=== PATIENT | female | born 1965 | race Caucasian/White ===

== ENCOUNTER 2024-03-19 10:13 | Outpatient (OUT) | payer OTHER, SELFPAY ==
[2024-03-19 11:04] LABS: Anion Gap 8.3; BUN Creatinine Ratio 14.6; Carbon Dioxide 33.2 mmol/L (21.0-32.0); Chloride 107 mmol/L (98-107); Estimated GFR (African America >60 (>=60 mL/min/1.73m^2); Estimated GFR (Non-African Ame >60 (>=60 mL/min/1.73m^2); Glucose 90 mg/dL (74-106); Potassium 4.5 mmol/L (3.5-5.1); Sodium 144 mmol/L (136-145)
== END 2024-03-19 10:14 | disposition home or self-care (01) ==
LOC: LAB 10:17
PROVIDERS: PCP Internal Medicine; Visit Provider Internal Medicine
DX: R53.82 Chronic fatigue, unspecified (principal); G35 Multiple sclerosis
CPT/HCPCS: 36415; 80048

== ENCOUNTER 2024-09-03 18:56 | Outpatient (REF) | payer MEDICARE, SELFPAY ==
--- OUTSIDE RECORDS SUMMARY | 2024-09-03 13:00 | XMS_ITS | Encounter Summary ---
Author Organization [facility] Address [address] [place] [address] Care Team Providers Care Flat Lock Operator Name Role Phone Unavailable Primary Care Provider Unavailabl e Reason for Visit * Reason Comments Well Women Visit Encounter Details Date Type Department Care Team (Late st Contact Info) Description 09/03/2024 1:00 PM EDT Office Visit [facility] [address] [place] [address] Kleber Wood, DO [address] [facility] [address] [place], [facility]11 Well woman exam with routine gynecological exam; Encounter for screening mammogram for malignant neoplasm of breast; Postmenopausal state; Osteoporosis, post-menopausal Social History Tobacco Use Types Packs/Day Years Used Date Smoking Tobacco: Never Smokeless Tobacco: Never Alcohol Use Standard Drinks/Week Comments Never 0 (1 standard drink = 0.6 oz pur e alcohol) Comments Unknown Sex and Gender Information Value Date Recorded Sex Assigned at Female 01/24/2023 4:15 PM EST Legal Sex Female 11:47 PM EDT Gender Identity Female 01/24/2023 4:15 PM EST Sexual Orientation Straight 01/24/2023 4: 15 PM EST documented as of this encounter Last Filed Vital Signs Vital Sign Reading Time Taken Comments Blood Pressure 108/62 09/03/2024 1:14 PM EDT Pulse - - Temperature - - Respiratory Rate - - Oxygen Saturation - - Inhaled Oxygen Concentration - - Weight 51 kg (112 lb 8 oz) 09/03/2024 1:14 PM ED T Height - - Body Mass Index 18.16 01/24/2022 12:00 PM EST documented in this encounter Progress Notes * Umm Posada LPN - 09/03/2024 1:00 PM EDT Reason for Appointment: Patient ID: Sharmin Owens is a 59 y.o. female who presents for Well Women Visit Patient presents today for Annual Exam. MEDICATIONS Current Outpatient Medications Medication Instructions baclofen (Lioresal) 10 MG tablet Take by mouth calcitriol (Rocaltrol) 0.5 MCG capsule Take by mouth co-enzyme Q-10 30 MG capsule No dose, route, or frequency recorded. Multiple Vitamin (multivitamin) tablet No dose, route, or frequency recorded. pregabalin (Lyrica) 25 MG capsule Take by mouth solifenacin (VESIcare) 5 MG tablet Take by mouth Swallow tablet whole; do not crush, chew, or split. traZODone (Desyrel) 50 MG tablet Take by mouth Turmeric (QC TUMERIC COMPLEX PO) Take by mouth venlafaxine (Effexor) 25 MG tablet No dose, route, or frequency recorded. ALLERGIES Allergies Allergen Reactions Penicillins Rash PROBLEMS Active Ambulatory Problems Diagnosis Date Noted No Active Ambulatory Problems Resolved Ambulatory Problems Diagnosis Date Noted No Resolved Ambulatory Problems Past Medical History: Diagnosis Date Abnormal mammogram Breast cyst, right Menopause Osteopenia Osteoporosis HISTORY PAST MEDICAL HISTORY SOCIAL HISTORY Past Medical History: Diagnosis Date Abnormal mammogram Breast cyst, right Menopause Osteopenia Osteoporosis Social History Tobacco Use Smoking status: Never Smokeless tobacco: Never Substance Use Topics Alcohol use: Never Drug use: Never FAMILY HISTORY Family History Problem Relation Name Age of Onset Hypertension Mother Cancer Maternal Grandmother SURGICAL HISTORY Past Surgical History: Procedure Laterality Date DILATION AND CURETTAGE OF UTERUS REVIEW OF SYSTEMS Review of Systems: Review of Systems Constitutional: Negative. HENT: Negative. Eyes: Negative. Respiratory: Negative. Cardiovascular: Negative. Gastrointestinal: Negative. Genitourinary: Negative. Musculoskeletal: Negative. Skin: Negative. Neurological: Negative. All other systems reviewed and are negative. Hematological: Negative. Endocrine: Negative. Allergic/Immunologic: Negative. OBJECTIVE Objective: Physical Exam Constitutional: Appearance: Normal appearance. She is well-developed. Genitourinary: Vulva normal. Cardiovascular: Rate and Rhythm: Normal rate and regular rhythm. Pulmonary: Effort: Pulmonary effort is normal. Breath sounds: Normal breath sounds. Abdominal: General: Bowel sounds are normal. There is no distension. Palpations: Abdomen is soft. Tenderness: There is no abdominal tenderness. There is no guarding or rebound. Musculoskeletal: General: No swelling. Normal range of motion. Right lower leg: No edema. Left lower leg: No edema. Neurological: Mental Status: She is alert and oriented to person, place, and time. Skin: General: Skin is warm and dry. Psychiatric: Mood and Affect: Mood normal. Behavior: Behavior normal. Vitals and nursing note reviewed. Exam conducted with a sales and marketing assistant present. Vitals: Estimated body mass index is 18.16 kg/m?? as calculated from the following: Height as of 01/24/22: 5' 6 . Weight as of this encounter: 112 lb 8 oz. BP: 108/62 No LMP recorded. ASSESSMENT & PLAN ICD-10-CM 1. Well woman exam with routine gynecological exam Z01.419 2. Encounter for screening mammogram for malignant neoplasm of breast Z12.31 3. Postmenopausal state Z78.0 No orders of the defined types were placed in this encounter. Annual Wellness Exam (Age 50+): Patient presents today for routine annual exam. Patient states she has no current complaints. Patients vitals were reviewed and within normal limits. Growth and development is noted to be appropriate for age. No mental health concerns was expressed. Pap Smear: Speculum was inserted into the vagina and pap was obtained without difficulty. HPV testing was performed per age guideline. Patient was advised that pap results could take anywhere from 7 to 10 days to receive and our office will reach out to the patient with those once we have them. Patient can also view results via [employer]. I reinforced importance of condom use for STI prevention. Patient declined cultures to be performed with today's visit. Breast Exam: Upon examination, clinical breast exam was noted to be normal and screening mammogram was ordered and given to patient to have obtained. Patient was counseled on breast self-awareness, including the importance of knowing what is normal for her own breasts and promptly reporting any changes such as new lumps, skin dimpling, nipple discharge, or pain. Screening mammogram was recommended annually. Discussed signs and symptoms of breast cancer and when to seek medical attention. Answered all patient questions. DEXA Counseling: DEXA scan ordered and given to the patient to have performed for osteoporosis screening per guidelines. Patient counseled on bone health, including the importance of calcium and vitamin D intake, weight-bearing exercise, fall prevention, and avoiding tobacco and excessive alcohol. Discussed purposeof DEXA in assessing fracture risk and monitoring bone density. Patient advised results will be reviewed upon completion and next steps discussed as needed. Pt was counseled on fosamax and prolia- ptwill research Prolia and pt will call office. Follow Up: Patient is to return to our office in one year for annual exam unless needed otherwise. Documented by Umm Posada LPN on behalf of: Kleber Wood DO documented in this encounter Plan of Treatment Upcoming Encounters Date Type Department Care Team (Late st Contact Info) Description 09/09/2025 3:00 PM EDT Office Visit [facility] [address] [place] [id number] Kleber Wood DO [address] [facility] [place] [address] Scheduled Orders Name Type Priority Associated Diagnoses Orde r Schedule Bilateral screening mammogram Imaging Routine Encounter for screening mammogram for malignant neoplasm of breast Expected: 09/03/2024, Expires: 11/03/2025 DEXA bone density Imaging Routine Postmenopausal state Osteoporosis, post-menopausal Expected: 09/03/2024 (Approximate), Expires: 09/03/2025 THIN PREP TIS PAP AND HR HPV DNA Pathology and Cytology Routine Well woman exam with routine gynecological exam Ordered: 09/03/2024 documented as of this encounter Procedures Procedure Name Priority Date/Time Associated Diagnosis Comments PAP SMEAR Routine 01/24/2022 12:00 AM EST documented in this encounter Results * Pap Smear (01/24/2022 12:00 AM EST) Swab Cervical swab / Unknown us Kleber Wood DO LAB CYTOLOGY ORDERABLES Final Re sult EXTERNAL LAB documented in this encounter Visit Diagnoses Diagnosis Well woman exam with routine gynecological exam Routine gynecological examination Encounter for screening mammogram for malignant neoplasm of breast Postmenopausal state Asymptomatic postmenopausal status (age-related) (natural) Osteoporosis, post-menopausal Senile osteoporosis documented in this encounter
--- OUTSIDE RECORDS SUMMARY | 2024-09-03 19:09 | XMS_ITS | Encounter Summary ---
Author Organization [facility] Address [address] [place] [address] Care Team Providers Care Bariatric Physician Name Role Phone Seamus Parmar(Hist) Primary Care Provider Girish lin Pcp, Shanta TOSCANO Primary Care Provider Unavailrafaela e Source Comments In the event this information is protected by the Federal Confidentiality of Alcohol and Drug AbusePatient Records regulations: The Federal rules restrict any use of the information to criminally investigate or prosecute any alcohol or drug abuse patient.[facility] Reason for Visit * Reason Comments Results Encounter Details Date Type Department Care Team (Late st Contact Info) Description 01/06/2005 Abstract Neurology [address] [id number] [place] [address] [place], [place] [id number] Results Social History Tobacco Use Types Packs/Day Years Used Date Smoking Tobacco: Never Assessed Comments No Sex and Gender Information Value Date Recorded Sex Assigned at Not on file Legal Sex Female 7:31 AM EST Gender Identity Not on file Sexual Orientation Not on file documented as of this encounter Progress Notes * 01/06/2005 8:29 AM EDTReviewed the patient's case, spoke with Dr. Shin, and discussed them in detail with her. Her previous work-up has been comprehensive and I can't think of any unifying primary neurologic diagnosis that could explain her symtoms. I assured her of this but she became tearful. I also told her we could move onto a few urine tests (OA, AA) and a neuropsychiatric test to objectify her memory symptoms but she deferred. in addition, I told her f/u was open-ended, that I would be happy to further disc uss her case with Dr. Shin should new symptoms arise or her symptoms progress. Filemon Calderon MD Section of Neuromuscular Disease documented in this encounter Plan of Treatment Not on file documented as of this encounter Visit Diagnoses Not on filedocumented in this encounter Care Teams Bariatric Physician Relationship Specialty Start Date End Date Seamus Parmar(Hist) [address] [place] [address] PCP - General 07/14/05 [place] [address] PCP - General 10/08/04 05/17/05 documented as of this encounter
--- OUTSIDE RECORDS SUMMARY | 2024-09-03 19:09 | XMS_ITS | Clinical Summary ---
Author Organization [facility] Address [address] [place] [address] Care Team Providers Care Welding Foreman Name Role Phone Seamus Parmar(Hist) Primary Care Provider Unavai lable Allergies Active Allergy Reactions Criticality Noted Date Comments Propoxyphene N-Acetaminophen 005 Propoxyphene N-Acetaminophen Rash 006 Penicillins 12/16/2004 Penicillins Rash 08/30/2005 Medications BACLOFEN 10 MG ORAL TABIndications:A bnormality of gait 1/2 tab twice a day 0 12/16/2004 Active TRAZODONE 100 MG ORAL TABIndications:A bnormality of gait Take one(1) tablet daily. 0 12/16/2004 Active TRAZODONE 100 MG TAB Take one(1) tablet daily. 0 0 08/30/2005 Active BACLOFEN 10 MG TAB 5 mg twice daily 0 0 08/30/2005 Active EFFEXOR XR 150 MG 24 HR CAP Take one(1) tablet daily. 0 0 08/30/2005 Active LYRICA 150 MG CAP Take one(1) tablet two(2) times daily. 0 0 08/30/2005 Active ENABLEX 7.5 MG 24 HR TAB Take one(1) tablet daily. 0 0 08/30/2005 Active PROVIGIL 100 MG TAB Take one(1) tablet daily. 0 0 08/30/2005 Active Family History Medical History Relation Comments scoliosis [Other] Daughter Arthritis Father Hypertension Mother Asthma Son migraine [Other] Son No family history of MS [Other] Other Relation Status Comments Daughter Father Mother Son Other Social History Tobacco Use Types Packs/Day Years Used Date Smoking Tobacco: Every Day Cigarettes 1.5 28 Alcohol Use Standard Drinks/Week Comments No 0 (1 standard drink = 0.6 oz pur e alcohol) Comments No Sex and Gender Information Value Date Recorded Sex Assigned at Not on file Legal Sex Female 7:31 AM EST Gender Identity Not on file Sexual Orientation Not on file Occupation Industry Job Start Date Job End Date last worked 04/25 Not on file Not on file Not on file Last Filed Vital Signs Vital Sign Reading Time Taken Comments Blood Pressure 108/68 12/16/2004 4:00 PM EDT Pulse 88 12/16/2004 4:00 PM EDT Temperature - - Respiratory Rate - - Oxygen Saturation - - Inhaled Oxygen Concentration - - Weight - - Height - - Body Mass Index - - Plan of Treatment Health Maintenance Due Date Last Done Comments Anxiety Screening 1982 Depression Screening 1982 HIV Screening 1982 Hepatitis C Screening 1982 DTaP,Tdap,Td Vaccine (1 - Tdap) 06/09/1983 Cervical Cancer Screening [address] Colonography 2009 Cologuard (FIT-DNA) 2009 Colonoscopy 2009 Colorectal Cancer Screening 2009 Diabetes Screening 2009 Fecal Occult Blood 2009 Lipid Screening 2009 Sigmoidoscopy 2009 Pneumococcal Vaccine: 50+ (1 of 1 - PCV) 2014 Shingrix Vaccine (1 of 2) 2014 Covid-19 Vaccine (1 - 2023- season) 2023 Influenza Vaccine (Season Ended) 2024 RSV Vaccine (1 - 1-dose 75+ series) 06/09/2039 [facility] [employer] [facility] Care Teams Welding Foreman Relationship Specialty Start Date End Date Seamus Parmar(Hist) [address] [place] [address] PCP - General 07/14/05
--- OUTSIDE RECORDS SUMMARY | 2024-09-03 19:09 | XMS_ITS | Encounter Summary ---
Author Organization [facility] Address [address] [facility] [place] [address] Care Team Providers Care Project Scientist Name Role Phone Unavailable Primary Care Provider Unavailabl e Encounter Details Date Type Department Care Team (Late st Contact Info) Description 09/03/2024 Bamboo flowsheet [facility] OB [address] [place] [address] Kleber Wood [address] [place], [facility] Social History Tobacco Use Types Packs/Day Years [...] PM EST documented as of this encounter Plan of Treatment Upcoming Encounters Date Type Department Care Team (Late st Contact Info) Description 09/09/2025 3:00 PM EDT Office Visit [facility] [address] [place] [place] [address] Kleber Wood [facility] [place], [place] [id number] documented as of this encounter Visit Diagnoses Not on filedocumented in this encounter
--- OUTSIDE RECORDS SUMMARY | 2024-09-03 19:09 | XMS_ITS | Clinical Summary ---
Author Organization [facility] Address [id number] [address] [place] [address] Care Team Providers Care It Support Manager Name Role Phone Erasmo Narvaez MD Primary Care Provider [phone] Allergies Active Allergy Reactions Criticality Noted Date Comments Penicillins Rash Low 12/16/2004 Propoxyphene Rash Low 12/16/2004 Darvocet. Possible sun sensitivity. Propoxyphene N-Acetaminophen Rash Low 005 Medications baclofen (LIORESAL) 10 mg tablet Take 1 tablet (10 mg total) by mouth in the morning and 1 tablet (10 mg total) at noon and 1 tablet (10 mg total) in the evening and 1 tablet (10 mg total) before bedtime. 04/11/2023 Active pregabalin (LYRICA) 150 mg capsule Take 1 capsule (150 mg total) by mouth. 10/30/2023 Active traZODone (DESYREL) 100 mg tablet Take 1 tablet (100 mg total) by mouth. 12/13/2023 Active venlafaxine XR (EFFEXOR-XR) 150 mg 24 hr capsule Take 1 capsule (150 mg total) by mouth. 12/13/2023 Active benzonatate (TESSALON PERLES) 100 mg capsule Take 1 capsule (100 mg total) by mouth 2 (two) times a day as needed for cough. 21 capsule 02/14/2024 Active Social History Tobacco Use Types Packs/Day Years Used Date Smoking Tobacco: Never Assessed Childcare Answer Date Recorded Childcare Unknown 08/29/2018 Employment Answer Date Recorded Employment Unknown 08/29/2018 Hunger Screening Answer Date Recorded Within the past 12 months we worried whether our food would run out before we got money to buy more. Never True 02/14/2024 Within the past 12 months th e food we bought just didn't last and we didn't have money to get more. Never True 02/14/2024 Comments Unknown Sex and Gender Information Value Date Recorded Sex Assigned at Not on file Legal Sex Female 11:56 AM EDT Gender Identity Not on file Sexual Orientation Not on file Last Filed Vital Signs Vital Sign Reading Time Taken Comments Blood Pressure 131/72 02/14/2024 3:38 PM EST Pulse 94 02/14/2024 3:38 PM EST Temperature 37.1 C (98.8 F) 02/14/2024 2:06 PM EST Respiratory Rate 20 02/14/2024 3:38 PM EST Oxygen Saturation 95% 02/14/2024 3:38 PM EST Inhaled Oxygen Concentration - - Weight 49.9 kg (110 lb) 02/14/2024 2:06 PM EST Height 165.1 cm (5' 5 ) 02/14/2024 2:06 PM EST Body Mass Index 18.3 02/14/2024 2:06 PM EST Plan of Treatment Health Maintenance Due Date Last Done Comments Depression Screening 1976 Tobacco Screening 1976 Adult BMI Follow Up Plan 1982 DTaP,Tdap and Td Vaccines (1 - Tdap) 06/09/1983 Pap Smear 1985 Zoster (Shingles) Vaccine (1 of 2) 2014 COVID-19 Vaccine (2023-2 5 season) 2023 05/23/2020, 05/06/2020, 04/23/2020, Additional history exists Influenza Vaccine 11/18/2024 12/22/2021, , 01/08/2020, Additional history exists Adult BMI Screening 02/13/2025 02/14/2024 Medical Devices Not on file Insurance [employer] Care Teams It Support Manager Relationship Specialty Start Date End Date Erasmo Narvaez MD [address] [place] [address], [facility] [place] [address] PCP - General Internal Medicine 02/14/24
--- OUTSIDE RECORDS SUMMARY | 2024-09-03 19:09 | XMS_ITS | Clinical Summary ---
Author Organization [facility] Address [address] [place] [address] Care Team Providers Care Sanitizer Name Role Phone Unavailable Primary Care Provider Unavailabl e Allergies Active Allergy Reactions Criticality Noted Date Comments Penicillins Rash Low 09/03/2024 Medications venlafaxine (Effexor) 25 MG tablet Active baclofen (Lioresal) 10 MG tablet Take by mouth Active solifenacin (VESIcare) 5 MG tablet Take by mouth Swallow tablet whole; do not crush, chew, or split. Active traZODone (Desyrel) 50 MG tablet Take by mouth Active co-enzyme Q-10 30 MG capsule Active Multiple Vitamin (multivitamin) tablet Active Turmeric (QC TUMERIC COMPLEX PO) Take by mouth Active calcitriol (Rocaltrol) 0.5 MCG capsule Take by mouth Active pregabalin (Lyrica) 25 MG capsule Take by mouth Active Encounters Date Type Department Care Team Description 09/03/2024 1:00 PM EDT Office Visit [facility] [address] [facility] [place] [address] lKeber Wood DO Well woman exam with routine gynecological exam; Encounter for screening mammogram for malignant neoplasm of breast; Postmenopausal state; Osteoporosis, post-menopausal 09/03/2024 Bamboo flowsheet [facility] OB [address] [place] [address] Kleber Wood DO from Last 3 Months Family History Medical History Relation Name Comments Cancer Maternal Grandmother Hypertension Mother Relation Name Status Comments Maternal Grandmother Alive Mother Alive Social History Tobacco Use Types Packs/Day Years Used Date Smoking Tobacco: Never Smokeless Tobacco: Never Tobacco Cessation:Counseling Given: Not Answered Alcohol Use Standard Drinks/Week Comments Never 0 (1 standard drink = 0.6 oz pur e alcohol) Comments Unknown Sex and Gender Information Value Date Recorded Sex Assigned at Female 01/24/2023 4:15 PM EST Legal Sex Female 11:47 PM EDT Gender Identity Female 01/24/2023 4:15 PM EST Sexual Orientation Straight 01/24/2023 4: 15 PM EST Last Filed Vital Signs Vital Sign Reading Time Taken Comments Blood Pressure 108/62 09/03/2024 1:14 PM EDT Pulse - - Temperature - - Respiratory Rate - - Oxygen Saturation - - Inhaled Oxygen Concentration - - Weight 51 kg (112 lb 8 oz) 09/03/2024 1:14 PM ED T Height 167.6 cm (5' 6 ) 01/24/2022 12:00 PM EST Body Mass Index 18.16 01/24/2022 12:00 PM EST Plan of Treatment Upcoming Encounters Date Type Department Care Team (Late st Contact Info) Description 09/09/2025 3:00 PM EDT Office Visit [facility] [address] [facility] [address] [address] Kleber Wood, DO [address] [facility] [address] [place], [place] [id number] Health Maintenance Due Date Last Done Comments CT Colonography 1964 FIT-DNA 1964 FIT 1964 FOBT 1964 Sigmoidoscopy 1964 Mammogram 01/24/2023 01/24/2022 Influenza Vaccine (Season Ended) 2024 12/22/2021, 01/18/2021, 01/08/2020, Additional history exists Colonoscopy 11/16/2026 11/16/2016 Colorectal Cancer Screening 11/16/2026 Cervical Cancer Screening 01/24/2027 HPV/Cotest 01/24/2027 Pap Smear 01/24/2027 01/24/2022 Procedures Procedure Name Priority Date/Time Associated Diagnosis Comments BI MAMMOGRAM DIAGNOSTIC BILATERAL Routine 01/24/2022 12:00 PM EST Other specified noninflammatory disorders of vagina Encounter for gynecological examination (general) (routine) without abnormal findings PAP SMEAR Routine 01/24/2022 12:00 AM EST from Last 3 Months or Most Recently Relevant to Health Maintenance Results * Bilateral diagnostic mammogram (01/24/2022 12:00 PM EST) Anatomical Region Laterality Modality Breast Bilateral Mammography Narrative 01/24/2022 12:00 PM EST PERFORMED AT [facility] LOCATION:[id number] Procedure Note CONVERSION, GENERIC - 09/23/2022 PERFORMED AT [facility] LOCATION:[id number] us Kleber Nina DO IMG BI PROCEDURES Final Result * Pap Smear (01/24/2022 12:00 AM EST) Swab Cervical swab / Unknown us Kleber Nina DO LAB CYTOLOGY ORDERABLES Final Re sult EXTERNAL LAB from Last 3 Months or Most Recently Relevant to Health Maintenance Insurance [employer]
--- OUTSIDE RECORDS SUMMARY | 2024-09-03 19:10 | XMS_ITS | Encounter Summary ---
Author Organization Rolando Gonzalez [facility] Address [address] [place] [address] Care Team Providers Care Fine Hairer Name Role Phone Erasmo Narvaez MD Primary Care Provider [phone] Encounter Details Date Type Department Care Team (Late st Contact Info) Description 08/13/2024 Abstract Erasmo Narvaez MD [address] [place] [phone] Erasmo Narvaez MD [address] [place] [address], [place] [address] Social History Tobacco Use Types Packs/Day Years Used Date Smoking Tobacco: Every Day Cigarettes 0.5 40 Smokeless Tobacco: Never Alcohol Use Standard Drinks/Week Comments No 0 (1 standard drink = 0.6 oz pur e alcohol) [facility] Utilities Answer Date Recorded In the past 12 months has e electric, gas, oil, or water [employer] threatened to shut off services in your home? No 02/02/2024 Humiliation, Afraid, Rape, and Kick questionnair e Answer Date Recorded Within the last year, have y ou been afraid of your partner or ex-partner? No 02/02/2024 Within the last year, have y ou been humiliated or emotionally abused in other ways by your partner or ex-partner? No Within the last year, have y ou been kicked, hit, slapped, or otherwise physically hurt by your partner or ex-partner? No 02/02/2024 Within the last year, have y ou been raped or forced to have any kind of sexual activity by your partner or ex-partner? No 02/02/2024 Social Connection and Isolat ion Panel [NHANES] Answer Date Recorded In a typical week, how many times do you talk on the phone with family, friends, or neighbors? More than three times a week 02/02/2024 How often do you get togethe r with friends or relatives? More than three times a week 02/02/2024 How often do you attend chur or caodaism services? More than 4 times per year 02/02/2024 Do you belong to any clubs o r organizations such as synagogue groups, unions, fraternal or athletic groups, or school groups? Yes 02/02/2024 How often do you attend meet ings of the clubs or organizations you belong to? More than 4 times per year 02/02/2024 Are you , , di vorced, , never , or living with a partner? 02/02/2024 AUDIT-C Answer Date Recorded Q1: How often do you have a drink containing alcohol? Never 02/02/2024 Q2: How many drinks containi ng alcohol do you have on a typical day when you are drinking? Patient does not drink Q3: How often do you have si x or more drinks on one occasion? Never 02/02/2024 Overall Financial Resource Strain (CARDIA) Answe r Date Recorded How hard is it for you to pa y for the very basics like food, housing, medical care, and heating? Not hard at all 07/26/2023 PHQ-2 Answer Date Recorded PHQ-9 Total Score 0 08/13/2024 [facility] of Occupat ional Health - Occupational Stress Questionnaire Answer Date Recorded Do you feel stress - tense, restless, nervous, or anxious, or unable to sleep at night because your mind is troubled all the time - these days? Not at all 02/02/2024 Exercise Vital Sign Answer Date Recorde d On average, how many days pe r week do you engage in moderate to strenuous exercise (like a brisk walk)? 5 days 02/02/2024 On average, how many minutes do you engage in exercise at this level? 30 min 02/02/2024 Hunger Vital Sign Answer Date Recorded Within the past 12 months, y ou worried that your food would run out before you got the money to buy more. Never true 02/02/20 24 Within the past 12 months, t he food you bought just didn't last and you didn't have money to get more. Never true 02/02/2024 PRAPARE - Transportation Answer Date Re corded In the past 12 months, has l ack of transportation kept you from medical appointments or from getting medications? No 01/18 In the past 12 months, has l ack of transportation kept you from meetings, work, or from getting things needed for daily living? No 02/02/2024 Housing Stability Vital Sign Answer Madi e Recorded Unable to Pay for Housing in the Last Year Not o n file 07/26/2023 Number of Places Lived in the Last Year Not on f ile 07/26/2023 In the last 12 months, was t here a time when you did not have a steady place to sleep or slept in a longterm (including now)? No 07/26/2023 Housing Stability Vital Sign Answer Madi e Recorded In the last 12 months, was t here a time when you were not able to pay the mortgage or rent on time? No 02/02/2024 In the past 12 months, how m any times have you moved where you were living? 1 02/02/2024 At any time in the past 12 m [facility], were you homeless or living in a longterm (including now)? No 02/02/2024 Interpersonal Safety ([facility] HRSN) Answer Date Recorded How often does anyone, cesar parra family and friends, physically hurt you? Never 02/02/2024 How often does anyone, inclu ding family and friends, scream or curse at you? Never 02/02/2024 How often does anyone, inclu ding family and friends, insult or talk down to you? Never 02/02/2024 How often does anyone, inclu ding family and friends, threaten you with harm? Never 02/02/2024 Food Insecurity Answer Date Recorded Within the past 12 months, y ou worried that your food would run out before you got the money to buy more. 1 02/02/2024 Within the past 12 months, t he food you bought just didn't last and you didn't have money to get more. 1 02/02/2024 Comments No Sex and Gender Information Value Date Recorded Sex Assigned at Female 08/10/2024 9:31 AM EDT Legal Sex Female 5:06 PM EST Gender Identity Not on file Sexual Orientation Not on file documented as of this encounter Plan of Treatment Upcoming Encounters Date Type Department Care Team (Late st Contact Info) Description 02/07/2025 8:00 AM EST Office Visit Erasmo Narvaez MD [address] [place] [address] [place] [address] Erasmo Narvaez MD [address] [place] [address] maw documented as of this encounter Visit Diagnoses Not on filedocumented in this encounter Additional Health Concerns Assessment Noted Time A fall risk assessment has been complete d for the patient 08/13/2024 8:25 AM EDT documented as of this encounter Care Teams Fine Hairer Relationship Specialty Start Date End Date Erasmo Narvaez MD [address] [place], [place] [address] [address] PCP - General Internal Medicine 04/18/14 documented as of this encounter
--- OUTSIDE RECORDS SUMMARY | 2024-09-03 19:10 | XMS_ITS | Encounter Summary ---
Author Organization Rolando Gonzalez [facility] Address [address] [place] [address] Care Team Providers Care Yam Curer Name Role Phone Erasmo Narvaez MD Primary Care Provider [phone] Reason for Visit * Reason Onset Date Comments Medication Refill 08/26/2024 Encounter Details Date Type Department Care Team (Late st Contact Info) Description 08/26/2024 Refill Erasmo Narvaez MD [address] [place] [phone] Sid Rueda MD [address] [place] [address] Medication Refill Social History Tobacco Use Types Packs/Day Years Used Date Smoking Tobacco: Every Day Cigarettes 0.5 40 Smokeless Tobacco: Never Alcohol Use Standard Drinks/Week Comments No 0 (1 standard drink = 0.6 oz pur e alcohol) [facility] Utilities Answer Date Recorded In the past 12 months has e electric, gas, oil, or water company threatened to shut off services in your [...] week 02/02/2024 How often do you attend [facility] or latter day services? More than 4 times per year 02/02/2024 Do you belong to any clubs o r organizations such as orthodoxy groups, unions, fraternal or athletic groups, or [...] Date Recorded PHQ-9 Total Score 0 08/13/2024 [facility] of Occupat ional Health - Occupational Stress [...] place to sleep or slept in a senior care (including now)? No 07/26/2023 Housing Stability Vital Sign Answer Madi e Recorded In the last 12 months, was t here a time when you were not able to pay the mortgage or rent on time? No 02/02/2024 In the past 12 months, how m any times have you moved where you were living? 1 02/02/2024 At any time in the past 12 m [facility], were you homeless or living in a senior care (including now)? No 02/02/2024 Interpersonal Safety ([facility] HRSN) Answer Date Recorded How often does anyone, cesar parra family and friends, physically hurt you? Never 02/02/2024 How often does anyone, cesar parra family and friends, scream or curse at you? Never 02/02/2024 How often does anyone, cesar parra family and friends, insult or talk down to you? Never 02/02/2024 How often does anyone, cesar parra family and friends, threaten you with harm? [...] AM EST Office Visit Erasmo Narvaez MD [address] [place], [place] [address], [place] [address] Erasmo Narvaez MD [address] [place] [address] [place] [address] maw documented as of this encounter Visit Diagnoses Diagnosis MS (multiple sclerosis) (HCC) Multiple sclerosis documented in this encounter Additional Health Concerns Assessment Noted Time A fall risk assessment has been complete d for the patient 08/13/2024 8:25 AM EDT documented as of this encounter Care Teams Yam Curer Relationship Specialty Start Date End Date Erasmo Narvaez MD [address] [place] [address] PCP - General Internal Medicine 04/18/14 documented as of this encounter
--- OUTSIDE RECORDS SUMMARY | 2024-09-03 19:14 | XMS_ITS | CCD ---
Author Organization [facility] Inform ion Partnership [facility] Care Team Providers Care Heliotherapist Name Role Phone ROBSON, DR PEREZ Attending Unavailable ROBSON, DR PEREZ Consulting Unavailable ROBSON, DR PEREZ Primary Care Unavailable ROBSON, DR PEREZ Admitting Unavailable ROBSON, DR PEREZ Primary Care Unavailable MARITO, DR WESLEY Attending Unavailable MARITO, DR WESLEY Consulting Unavailable MARITO, DR WESLEY Admitting Unavailable ROBSON, DR PEREZ Primary Care Unavailable WEST, DR NEHA Tsai Consulting Unavailable ROBSON, DR PEREZ Admitting Unavailable ROBSON, DR PREEZ Attending Unavailable ROBSON, DR PEREZ Consulting Unavailable Fabiola Tejeda Unavailable CHRIS CHANCE Primary Care Unavailable CHRIS CHANCE Attending Unavailable CHRIS CHANCE Referring Unavailable CHRIS CHANCE Primary Care Unavailable NATALYA FLORES Attending UnavailCHRIS Frederick Primary Care Unavailable Cordell To Attending Unavailable Cordell To Admitting Unavailable Allergies Allergy Classification Reported Allergen(s) Allergy Type Date of Onset Reaction(s) Facility (1 source) formoterol Drug Allergy [facility] Repository (3 sources) Penicillin; Translations: [penicillin] Drug Allergy Unknown [facility] Repository (1 source) Penicillins; Translations: [PENICILLINS] Propensity to adverse reactions to drug (disorder) [facility] Repository (1 source) Propoxyphene; Translations: [PROPOXYPHENE] Drug Allergy 5 [facility] Rep[facility] (1 source) PROPOXYPHENE N-ACETAMINOPHEN; Translations: [PROPOXYPHENE N-ACETAMINOPHEN] Propensity to adverse reactions to drug (disorder) 5 [facility] Repository Medications Current Medications Medication Drug Class(es) Dates Sig (Normalized) Sig (Original) baclofen 10 mg oral tablet (1 source) gamma-Aminobutyric Acid-ergic Agonist Baclofen 10 MG Oral for 90 Days Active dextromethorphan hydrobromide 15 mg / guaiFENesin 400 mg / pseudoephedrine hydrochloride 60 mg oral tablet (1 source) alpha-Adrenergic Agonist, Uncompetitive G-tfsylw-S-aspartate Receptor Antagonist, Sigma-1 Agonist Start: 02-14-2023 take 4 tablets by mouth every twenty-four hours as needed Capmist DM 60-15-400 MG as needed Orally every 4-6 hours as needed, max 4 tablets in 24 hours for 5 days Jan, Active 24 hr oxybutynin chloride 10 mg extended release oral tablet (1 source) Cholinergic Muscarinic Antagonist oxyBUTYnin Chloride ER 10 MG Oral for 90 Days Active polymyxin b 22556 unt/ml / trimethoprim 1 mg/ml ophthalmic solution (1 source) Dihydrofolate Reductase Inhibitor Antibacterial, Polymyxin-class Antibacterial Start: 02-14-2023 take 1 drop(s) into the eye(s) four times daily Polymyxin B-Trimethoprim 38986-0.1 UNIT/ML 1 drop into affected eye Ophthalmic Four times a day for 5 day(s) Jan, Active predniSONE 20 mg oral tablet (1 source) Start: 02-14-2023 take 1 tablet by mouth every twelve hours prednisone 20 MG 1 tablet Orally BID for 5 Jan, Active pregabalin 150 mg oral capsule (1 source) Pregabalin 150 MG Oral for 90 Days Active traZODone hydrochloride 100 mg oral tablet (1 source) Serotonin Reuptake Inhibitor traZODone HCl 100 MG Oral for 90 Days Active 24 hr venlafaxine 150 mg extended release oral capsule (1 source) Serotonin and Norepinephrine Reuptake Inhibitor Venlafaxine HCl ER 150 MG Oral for 90 Days Active Problems Active Problems Problem Classification Problem Date Documented Date Episodic/Chronic Cardiac dysrhythmias (1 source) Palpitations; Translations: [Palpitations] Onset: 03-03-2023 Episodic Disorders of lipid metabolism (4 sources) Mixed hyperlipidemia; Translations: [MIXED HYPERLIPIDEMIA] Onset: 02-15-2022 Chronic Fever of unknown origin (1 source) Fever Onset: 02-14-2024 Episodic Immunizations and screening for infectious disease (1 source) Encounter for screening for human papillomavirus (HPV); Translations: [ENC SCREENING HUMAN PAPILLOMAVIRUS] Onset: 11-12-2022 Episodic Inflammation; infection of eye (except that caused by tuberculosis or sexually transmitteddisease) (1 source) Unspecified acute conjunctivitis, bilateral Episodic Malaise and fatigue (1 source) Chronic fatigue, unspecified; Translations: [CHRONIC FATIGUE UNSPECIFIED] Onset: 02-19-2022 Chronic Multiple sclerosis (1 source) Multiple sclerosis; Translations: [MULTIPLE SCLEROSIS] Onset: 02-19-2022 Chronic Other lower respiratory disease (1 source) Other nonspecific abnormal finding of lung field; Translations: [OTH NONSPECIFIC ABN FIND LNG FIELD] Onset: 11-23-2021 Episodic Other lower respiratory disease (1 source) Cough Onset: 02-14-2024 Episodic Other screening for suspected conditions (not mental disorders or infectious disease) (4 sources) Encounter for screening for malignant neoplasm of cervix; Translations: [ENC SCREENING MALIG NEOPLASM CERV] Onset: 01-24-2022 Episodic Other upper respiratory disease (1 source) Nasal congestion Onset: 02-14-2024 Episodic Other upper respiratory infections (1 source) Acute upper respiratory infection, unspecified Episodic Pneumonia (except that caused by tuberculosis or sexually transmitted disease) (1 source) Pneumonia, unspecified organism; Translations: [Pneumonia, unspecified organism] Onset: 02-14-2024 Episodic Substance-related disorders (4 sources) Nicotine dependence, cigarettes, uncomplicated; Translations: [NICOTINE DEPEND CIGARETTES UNCOMP] Onset: 11-20-2021 Chronic Unclassified (1 source) Cough, Congestion, Fever Onset: 02-14-2024 Past or Other Problems Problem Classification Problem Date Documented Da te Episodic/Chronic Unclassified (1 source) Contact with and (suspected) exposure to covid-19 Z20.822 Results Test Name Value Interpretation Reference Range Facility Coding Summaryon 02-19-2024 Coding Summary HTMLBase 64 IkjsknomTXd6oXl+PGhlY WQ+JX6VOAXdX91oxYEtyL 9xY0RZVMqOJpyeVODBHJq ZEcKbyiEbZH3ueVXaREZt IC8+VC4nZHYgRizreWNlw 8Y0uNK8C02obs3mBAnasJ P4VNGbGcDovafiu2uonUw 6IDcuNmluOyBt ZMYnbM28NSK0bA35Se26f HUreCByx9cqfOx0EbEqRO MvKBQ0dQxwFNhwg5ZzWNT yD23cuRLcv2E3 GOKvkVsarZNaEqQfhEB3j G7pYLftnooal5apfyfkLm n4jd20tRXwm6E3pKW6R6Z jskM2XDHfeLZw BaqvpKVTdV7ynxwck5zas wrhXaFgCFPvZWj5WVb4GU IxcCcmRvVtGM19XOO4FWJ jikIkA3EqVQSu uZspPyJ6u2B2Hx9RY9OTK hnsU5BTWMWTDTlvfTM+PC 80uj50Y0JvFhrwGil0AOA eOCP8xOC7mR7o EDDtULtyk7A8bMZ3J5Idf hGwma2rd7rkDGIwFVcdY8 6szYFnp3Q6AVLfpZF2IBC wwPtaLjLrqI43 Oyc+BXVohQuxd7ChUbfxv 6arv7jrqOo9GsmbKZLzhn KhqTrqHDT8n8VuYa2oAUD pyUF0yML5cB5f RhCfNxM6LKheF661TeZck OSbOqteD38qJ6HhcLH+PH HfSeo7SGFslOcrKW0yW3F hZGRpbmctbGVm zEqfOB7mBKDjrzsyYSQsz V9kTGCgA1o3XaBtSiQ7JS hlN2SyGTKglxjqMi19uW4 qEfJtHtL8JMxt Y0FfdoF4HKFaeTQsGKfmB BH5U81od2J8BISiXCUkMR T7nDK0wS1gfGirxvshpKZ mdDsgdmVydGlj VIudIOqvL323VNBccBhuH kNvZGluZyBEYXRlOiAgMT IvMDIvMjAyNDwvdGQ+PHR zOJN9sQorUYHc zGCjLYqkOw6jdXibeKefJ L1oZVUujibsEPQthI2dTG XvvEMgvBqxCG2eGPVkeiq ks451YgYqRRL4 CGXprPEoX3NqcR4gQlNkS FPrDVTrE1GziSWqZXeoM1 44YWraPgI3RLPdnsHvK9E sLWFsaWduOiB0 s8P5Dj2Lg2XwxjjsC9Ezo DOkAsGeZhasFCe8I4WlXz wvdHI+NM46XFIyFG46MXz 5JAJ2uSqgBEbk BHRpS6KhtF8gPeYzVYVkT GRkOyc+PHRhYmxlIHdpZH RoPScxMDAlJyBzdHlsZT0 wCu1dQFSmMHBg oCgedAUiUdFvi1cmMVZkT FikEA7hhAeiT3JejVA4JH Zpc7x3Kx54G84qR8MquHV +ETXpxGE6zGS8 oQ9oJbMdOxK2DFqiF995C oZxdRFyQbura9izf7afeT p3DsF0FZYmkzRgrGwcJRN 3i9WtYa09D47y IHdpZHRoPSIxNSUiIHZhb Jvfei0chE6wGm2+PGNvbC A0wQZ2oB0gIrGpShI9YCt kE954HrTtkZJk Archi2rjy2xjrEu8VxAaF UBmfpTmgLgoWHK6r5AlAx 28Z2JfwUyby9QpYaw5kx6 0oBCsp7Z4fLM8 C0MtZSIcbsqqxEExfSfvE C9gVRNvidhkMJVpnZ5zAA VhO0b5QkJtObZ1KTngF2Q ezfT5HHMipAJq LZVehIANdH3ejjrbg5ugo eieCvPvFVQlKWu3BKc8SW FxcXqzEsWkSAX1UaK3ZEY 9wHBpvQ7lzDat usozjQ8aWim+JJD5yJDwo HXSKU9oZzdooYT+PHRkIH V3xInpHRpyDZDkkQ1tLLB lE0w5BxWuPhZ0 SPolO6FtumJ5SZCtiZWkY DQovYSBwX2temdhb0fzvm rdXwGpEZOeHTh5RGl7FGA saWduOiBsZWZ0 DnL3VGR6lBCghK5mtPioj mtyhO7oIgs+QmlydGggRG U1JWb2V3CzHxm6CNFusKi cWJ5cvKZhVOxf Mu7jrUoqfHicKX8nBHTar izur928MhQba1ywXKClkO FpTKlwYZB8I72wh4D0YNP gQFIuZEI5tLM1 zB0rpHnbyouotTNtxNdrj hWqwScfYPikCWcrC633SA RrjFbnAgGsFSa8U4TnRvn 3DAWbtRmiML9b sERtUWkpXu8hqKjuiKbnA S8rNGYvwzltg705CwYyi0 eiXRJbyFAvHUtePUL3W51 eg4U2GINiWYBv CQX2bTI9dO7tvMrprnxoj GVmdDsgdmVydGljYWwtYW usQ457TFLaxSbtTjWpiZc 2T1HqMsc3AHQr cNoeOR6xoNBaBMpiLh4qe QoodSmuJX2rCJDugilrr8 73JkHvh9ztRZEprYUhIEl pHLC6N27br8H2 RXPzLMPyKOQ4lOP8vE6pm GlnbjogbGVmdDsgdmVydG byMNcpDFbiY663JXVpdSa nPlBhdGllbnQg EMnuMCd5W3TjOmeqmXS+P I55ZDDrTD56gDCiuVBtp7 umsAb5EhTpCGDtYTI3xUe cVEfet7FkSFHk X45buCApx2O5FJJipPqvn ZYyOjBkrTG9mP6qGPomgh lzz2oeeogePkszh6kjec3 5pD65T57uSIir ZHRoPSIzMCUiIHZhbGlnb s9spX0qYq5+ICRpeJF7qF X7fI3yEWWxVfJ6MOyeC74 9InRvcCIvPjxj f4kxk2wgmBk6EkC9MQNtv zAvdYybVVV1b9ZdQq33O5 9sIHdpZHRoPSIyMCUiIHZ oqHydrr4gpX7i Ii8+AGIflMI4eNF4mI9lI dRsFgN6GHhsC680IhUseF JsOqgxB45oL9DtnVD+PHR kKpw4FMThiKeo UZ2ruSHkNTxcBx4mPOO7O nItUnFwOFpsT2QyENJahb huxssbjVZ6ZHUdCIDnmQ9 1Ec6taZajGJYn mVGQuF2eziaez8vfjrmwC rEjCFNmNMi7OQu5CTIhzW uvZtZyIGG5WxU9BMV4sIA xsH2ioGphcqic vR0iG5ArRNFnumknGo05l Z2tKeHgLaD4XXvrLdj+WARREN 8GKmgmQWiWC1ShLXCFEHM 4U7EmWre1RQNl dUtpEF2qnNRgQWqaOj1cu NmskEzsZW7yDTWzrmjkCT XcjW1vDSOntNPtfFiqBV8 cHAOlllzad649 NpJmCLQ3ULIkvYHzW8Tuz Q4pCdGrRTMiJEWyI9AixO YiBTkxJ565QCrhSsL3XJL sogQkH3LqGYAg iGetHuU8x3K4Ca7pIa3pA w4qIYX0PG87RB19wCQou0 Z2iIC3Y3VxVMTfwfwltle mgCY7GTJuDCHy tR80eMGwOBafCj7vk8P4v 709YUUaKBWrqO87Gx4ljQ fbMRRqvMADvR6iwiugl8k vcjogIzAwMDAw LQu8ZLp0XUEjuKniBvZtV MZ7OpU0GIJ0bZElpC2qeQ wiqkzqvL4cYkv+NTkgWWV ocxO4Y9TfTua6 FLPzvJveJJ2rnQZhCUkpE b8quBbakPemMH6qOIVsak zlPAEtlG2zWNXsaWGheEl yWT3qTFAbtxpb c016EkIeERB6LQVzrOAdE 8FgqP4wWbZyZYYmZZTwV4 NttOSnSRueS888CIhxRjN 0SIJuciUsE7Mt DXQmdOapVyF7u9D8Cv5IE U5ZASC6W8UtKcq4RYTswQ woGT4psHGyIKiiZw7fqUa qsQwkPA8qZNIb pzvkVDTzqD8iKSYdxBSms KivMF6cQGTjtizfb004Tq TeVLG5PZWuzNTgP1NldW9 yOiAjMDAwMDAw Z9ZtxKKdXIjzX209AGqhQ mM0WFGfcsYyO8DhWHZkbP kcHbO3w5Y5Hx9RSFdboOX +VC62pb13J3Ks DhxpMlh6ZSLtNHP0bIH1u A3kYLMgMBoya7K2wVI5D1 SvtbVjar7ak6mgSFWdJDa nT78grWNqz5C8 YPZduJP0FONxoCarRnMmz G93Oyc+SGXgwXski4FyJl rrf3gkn4wdqHh2LwLoTQE gdmFsaWduPSJ0 t7VgVs52N15aQImvWRTxG VDsIISuTSYyeHqxyy8swD 9wIi8+YUAmrMR7sSN1pN4 uHwCePbT5CXcj L915QuAoyPPqLjfxj0kpw 5guzZk2ObVnNRIlikOjsX joYII1j9BvCo70V6UeiWr xu9LbLgr8do81 uMYvs8Z9jVZ3H6HxDKIps ihasDJryXleKA1kSPYebl ghYSUsxG8vZRMwG7u4EqJ zLaG1VPbeK4Oa nnK7WJNpoVQpHTSujKIZa K5xadlij5bgmemnZhEkQF PwLGm1RDo9VHGvjRgmAtO mHXY6PyP1DRJ2 uKByjW1tqYolozjuaX9xO yc+EAn2a3lhkFWiBU3pbY R9RS67KT98cLRcz3S1pEH 6W8WtRVQmnwbp dppfiYK8DBYnRPSeoP69C e2yfAenZm1bUAGhRBF0NA FkwMEnF4GqzZ1yDkWpCYY bHHLwV9OdvGBj UDazR685ATheAnW0YERid iTkA4UgWRBxfAcsLeU5s2 A5Pn4UVO70ZH59FD51lYU zw6Q5eJY6I6Kq LQMwamfzxwumqKZ0LCKoG PXnxJ70Kr6wrDfhUc3fHO UmZPL7JINmpDVvQ9EiwJ7 yOiAjMDAwMDAw X0KogVLmHOzoH287TNgjX yJ8YFBpxaShD3KbBPPpaC pnQnK6s8M6Yx0NRm12IT6 5MK07cWGkr3H0 eHO4T1MlIGIvwhdnjbvlj JY1ADPtJTGkhH38Yx3sjH pySi6qJCQxABO3UOXgqZO fM4BhwU5aHeBr ARYhEIBaC8KjvHOqAQnfL 233DZzyKuF9UOEungAiZ4 GfTSEqnSmvNeE6y3L3Ol0 ZLGhiurg4O8Iu PjwvdHI+HP00IWUoMN90q KSqsPPrm4pmoIz2TmBnVE DsIXG7zExwKAihi6YtAWM gR02rtZUup0D1 IGN (more content not included)... [facility] XR CHEST 2 VWSon 02-14-2024 XR CHEST 2 VWS XR CHEST 2 VWS XR CHEST 2 VWS IMPRESSION: Clinical Information: cough, congestion x 10 days not improving with abx Comparison: None. * Patchy basilar airspace opacification, atelectasis versus pneumonia versus aspiration. Trace effusions. Mild cardiomegaly. Degenerative changes of the thoracic spine. Finalized by Kirill Gabriel MD on 02/14/2024 2:38 PM Normal [facility] ED Clinical Summaryon 2023 ED Clinical Summary [facility] ? Urgent Care [address] [id number] Clinical Summary PERSON INFORMATION Name: SHARMIN CORLEY Age: 58 Years Sex: FEMALE : 1965 MRN: Acct#: Visit Reason: UC - Sinus Pain or Congestion; UC - Sore Throat; UC - Headache; UC - Cough; COUGH, HEADACHE Arrival: 02/11/2024 15:45:49 Discharge: 02/11/2024 16:57:00 LOS: 000 01:12 Check In: 02/11/2024 15:45:49 Checkout: 02/11/2024 16:57:00 Address: [address] [place], [place] [id number] PCP: CHRIS CHANCE MD PROVIDER INFORMATION Provider Role Assigned Unassigned Khushbu Ndiaye LPN ED Nurse 02/11/2024 15:48:55 Cordell To ED PA 02/11/2024 15:49:41 VITALS INFORMATION Vital Sign Triage Latest Temperature Tympanic Temperature Temporal Artery Pulse Rate O2 Sat 99 % 99 % Respiratory Rate Blood Pressure /80 mmHg /80 mmHg MEDICAL INFORMATION Medications Given: Allergy Information: penicillin PHYSICIAN DOCUMENTATION DISCHARGE INFORMATION: Discharge Disposition: Home Discharge Location: Home PATIENT EDUCATION INFORMATION Instructions: Otitis Media With Effusion, Adult; Sinus Infection, Adult Follow-Up: With: Address: When: CHRIS ZIMMER [facility] ([address] [place] Within 5 to 7 days Comments: Diagnosis today of acute bacterial sinusitis, right acute otitis media with effusion which will require antibiotic treatment. -Begin Azithromycin once daily for the next 5 days with food, complete all. -Continue OTC Flonase nasal spray 1-2 sprays each nostril twice a day for the next 10 days. -Continue OTC Shi once daily -Continue Mucinex 600mg BID x 10 days Seek additional medical care if worse, chest pain, shortness of breath, headache, fever over 101.5, worsening symptoms in any way. DIAGNOSIS: Acute frontal sinusitis; Acute otitis media, right Patient Understands: Yes - Patient/family/cindyi lowell verbalizes understanding of instructions given Comment: Normal [facility] ED Patient Summaryon 024 ED Patient Summary [facility] ? Urgent Care [address] [place] [address] PATIENT DISCHARGE INSTRUCTIONS Patient Information Name: SHARMIN CORLEY Age: 58 Years Date of : 1965 Reason For Visit: UC - Sinus Pain or Congestion; UC - Sore Throat; UC - Headache; UC - Cough; COUGH, HEADACHE Arrival Time: 02/11/2024 15:45:49 Primary Care Physician: CHRIS CHANCE MD Attending Physician: Cordell To Comment: Patient Education With: Address: When: CHRIS CHANCE [place] [facility] ([place] [place] Within 5 to 7 days Comments: Diagnosis today of acute bacterial sinusitis, right acute otitis media with effusion which will require antibiotic treatment. -Begin Azithromycin once daily for the next 5 days with food, complete all. -Continue OTC Flonase nasal spray 1-2 sprays each nostril twice a day for the next 10 days. -Continue OTC Shi once daily -Continue Mucinex 600mg BID x 10 days Seek additional medical care if worse, chest pain, shortness of breath, headache, fever over 101.5, worsening symptoms in any way. Otitis Media With Effusion, Adult Otitis media with effusion (OME) is inflammation and fluid (effusion) in the middle ear without having an ear infection. The middle ear is the space behind the eardrum. The middle ear is connected to the back of the throat by a narrow tube (eustachian tube). Normally the eustachian tube drains fluid out of the middle ear. A swollen eustachian tube can become blocked and cause fluid to collect in the middle ear. OME often goes away without treatment. Sometimes OME can lead to hearing problems and recurrent acute ear infections (acute otitis media). These conditions may require treatment. What are the causes? OME is caused by a blocked eustachian tube. This can result from: ? Allergies. ? Upper respiratory infections. ? Enlarged adenoids. The adenoids are areas of soft tissue located high in the back of the throat, behind the nose and the roof of the mouth. They are part of the body's natural defense system (immune system). ? Rapid changes in pressure, like when an airplane is descending or during scuba diving. In some cases, the cause of this condition is not known. What are the signs or symptoms? Common symptoms of this condition include: ? A feeling of fullness in your ear. ? Decreased hearing in the affected ear. ? Fluid draining into the ear canal. ? Pain in the ear. In some cases, there are no symptoms. How is this diagnosed? A health care provider can diagnose OME based on signs and symptoms of the condition. Your provider will also do a physical exam to check for fluid behind the eardrum. During the exam, your health care provider will use an instrument called an otoscope to look in your ear. Your health care provider may do other tests, such as: ? A hearing test. ? A tympanogram. This is a test that shows how well the eardrum moves in response to air pressure in the ear canal. It provides a graph for your health care provider to review. ? A pneumatic otoscopy. This is a test to check how your eardrum moves in response to changes in pressure. It is done by squeezing a small amount of air into the ear. How is this treated? Treatment for OME depends on the cause of the condition and the severity of symptoms. The first step is often waiting to see if the fluid drains on its own in a few weeks. Home care treatment may include: ? Vbwu-nzy-juisahm pain relievers. ? A warm, moist cloth placed over the ear. Severe cases may require a procedure to insert tubes in the ears (tympanostomy tubes) to drain the fluid. Follow these instructions at home: ? Take puep-hlv-jbvmwbr and prescription medicines only as told by your health care provider. ? Keep all follow-up visits. Contact a health care provider if: ? You have pain that gets worse. ? Hearing in your affected ear gets worse. ? You have fluid draining from your ear canal. ? You have dizziness. ? You develop a fever. Get help right away if: ? You develop a severe headache. ? You completely lose hearing in the affected ear. ? You have bleeding from your ear canal. ? You have sudden and severe pain in your ear. These symptoms may represent a serious problem that is an emergency. Do not wait to see if the symptoms will go away. Get medical help right away. Call your local emergency services (911 in the [place] Do not drive yourself to the hospital. Summary ? Otitis media with effusion (OME) is inflammation and fluid (effusion) in the middle ear without having an ear infection. ? A swollen eustachian tube can become blocked and cause fluid to collect in the middle ear. ? Treatment for OME depends on the cause of the condition and the severity of symptoms. ? Many times, treatment is not needed because the fluid drains on its own in a few weeks (more content not included)... Normal [facility] POCT Rapid CoV-2 (COVID-19) Antigen/ Flu A&Bon 02-11-2024 Influenza A POCT Negative Normal Negative [facility] Comment on above: Performed By: #### [id number] #### [facility] (DEFAULT) [address] [place] [address] Influenza B POCT Negative Normal Negative [facility] Comment on above: Performed By: #### [id number] #### [facility] (DEFAULT) [address] [place] [address] SARS-CoV-2 (COVID-19) RNA LI+probe Ql (Unsp spec) Not detected Normal [facility] Comment on above: Performed By: #### [id number] #### [facility] (DEFAULT) [address] [place] [id number] Urgent Care Note- Provideron 02-11-2024 Urgent Care Note- Provider Patient: SHARMIN CORLEY Age: 58 years Sex: FEMALE : 1965 Associated Diagnoses: Acute frontal sinusitis; Acute otitis media, right Author: Cordell To Basic Information Time seen: Date & time 02/11/2024 15:52:00. History source: Patient. Arrival mode: Walking. History limitation: None. Additional information: Chief Complaint from Nursing Triage Note : Chief Complaint 02/11/2024 15:57 EST Chief Complaint pt c/o sore throat, cough, CHIU. and sinus congestion x1 week. using zicam, benadryl, cough/cold medicine , and tylenol at home for relief. . Sharmin is a pleasant 58-year-old patient with MS who is ambulatory here with urgent cares. She states 7-day ago she began with 2 days of a sore throat, fever and body aches. Fever lasted 48 hours and has since broke. The 2nd day she developed nasal congestion, cough, sinus pressure. Comes in today stating that she has had a constant pressure headache to the forehead, started having some drainage coming out of both eyes, blowing thick drainage from her nose, pressure in both ears. She states she continues to have a cough but is more of a drainage type cough. Her cough does not go along with shortness of breath, wheezing, chest pain, tightness. She has not had a recurrent fever. She is taking Zicam, Benadryl and Tylenol at home. She just recently purchased Shi and Mucinex. She was exposed to her grandson who was sickly and she developed symptoms soon after. And drinking well. She has not had any dizziness lightheadedness chest pain nausea vomiting diarrhea. Review of Systems Constitutional symptoms: No fever, no chills, no sweats, no fatigue, no decreased activity. Skin symptoms: No rash, no breakdown, no lesion. Eye symptoms: No recent vision problems, no blurred vision. ENMT symptoms: Ear pain, nasal congestion, sinus pain, No sore throat, Respiratory symptoms: Cough, sputum production, No shortness of breath, Cardiovascular symptoms: No chest pain, no palpitations. Gastrointestinal symptoms: No abdominal pain, no nausea, no vomiting, no diarrhea. Genitourinary symptoms: No dysuria, no hematuria. Musculoskeletal symptoms: No back pain, Neurologic symptoms: Headache, Frontal headache with pressure pain, no dizziness, no altered level of consciousness, no numbness, no tingling, no weakness. Psychiatric symptoms: No anxiety, no depression. Health Status Allergies: Allergic Reactions (Selected) Unknown Penicillin- No reactions were documented.. Past Medical/ Family/ Social History Medical history: No active or resolved past medical history items have been selected or recorded.. Surgical history: No active procedure history items have been selected or recorded.. Family history: No family history items have been selected or recorded.. Physical Examination Vital Signs Vital Signs 02/11/2024 15:57 EST Temperature Oral 37 DegC Peripheral Pulse Rate 93 bpm Respiratory Rate 18 br/min Systolic Blood Pressure 151 mmHg HI Diastolic Blood Pressure 80 mmHg SpO2 99 % Oxygen Therapy Room air BP Method Automatic . General: Alert, no acute distress. Skin: Warm, dry. Head: Normocephalic, atraumatic. Neck: Supple, trachea midline. Eye: Pupils are equal, round and reactive to light, extraocular movements are intact, normal conjunctiva. Ears, nose, mouth and throat: Oral mucosa moist, no pharyngeal erythema or exudate, Tympanic membrane: Right, moderate, erythema, bulging, Sinus: Frontal, tenderness, Nose: Moderate, discharge, swelling. Cardiovascular: Regular rate and rhythm, No murmur. Respiratory: Lungs are clear to auscultation, respirations are non-labored, breath sounds are equal, No wheezing rales or rhonchi. Patient has a clearing postnasal type drainage cough.. Gastrointestinal: Soft, Nontender, Non distended. Back: Nontender. Neurological: Alert and oriented to person, place, time, and situation, No focal neurological deficit observed. Lymphatics: Exam: not anterior cervical, not posterior cervical. Psychiatric: Cooperative, appropriate mood & affect, normal judgment. Medical Decision Making Rationale: Discharge diagnosis viral upper respiratory infection that is leading into a secondary acute frontal sinusitis with moderate acute otitis media with effusion. At this time afebrile vital signs been stable. Patient is negative for influenza AB. Her lungs are clear on auscultation. Patient was started Meissen. She was advised to continue Mucinex, continue Flonase, continue Shi. Monitor symptoms. Return if worse.. Orders Launch Orders Patient Care: Rapid CoV-2 (COVID-19) Antigen/ Flu A&B POC RE (Order): 02/11/2024 15:54 EST, Once. Results review: Lab results : Lab Flowsheet 02/11/2024 16:36 EST SARS-CoV-2 (COVID-19) Ag (BD Veritor) Not Detected Influenza A POCT Negative Influenza B POCT Negative . Impression and Plan Diagnosis Acute frontal sinusitis ([id number] J01.10, Discharge, Medical (more content not included)... Normal [facility] [address] Urgent Care Record [facility] ? Urgent Care [address] [place] [address] PATIENT DISCHARGE INSTRUCTIONS Patient Information Name: SHARMIN CORLEY Age: 58 Years Date of : 1965 Reason For Visit: UC - Sinus Pain or Congestion; UC - Sore Throat; UC - Headache; UC - Cough; COUGH, HEADACHE Arrival Time: 02/11/2024 15:45:49 Primary Care Physician: CHRIS CHANCE MD Attending Physician: Cordell To Comment: Visit Diagnosis: Diagnoses This Visit Acute frontal sinusitis (J01.10) Acute otitis media, right (H66.91) UC - Cough ([id number]) UC - Headache ([id number]) UC - Sinus Pain or Congestion ([id number]) UC - Sore Throat ([id number]) If you received any narcotics, sedation, or any other medication that causes drowsiness for the next 24 hours, unless otherwise directed: ? Do not drive a car. ? Do not operate machinery such as power tools, lawn mowers, drills, sewing machines, or stoves ? Avoid alcoholic beverages and drugs for allergies, nerves, or sleep ? Do not make important personal or business decisions or sign any legal documents With: Address: When: CHRIS ZIMMER [facility] (1) Within 5 to 7 days Comments: Diagnosis today of acute bacterial sinusitis, right acute otitis media with effusion which will require antibiotic treatment. -Begin Azithromycin once daily for the next 5 days with food, complete all. -Continue OTC Flonase nasal spray 1-2 sprays each nostril twice a day for the next 10 days. -Continue OTC Shi once daily -Continue Mucinex 600mg BID x 10 days Seek additional medical care if worse, chest pain, shortness of breath, headache, fever over 101.5, worsening symptoms in any way. Medication Information: The exam and treatment you received today in the [facility] were for an urgent problem and are not intended as complete care. It is important for you to follow up with a doctor, nurse practitioner, or physician?s social research assistant for ongoing care. If your symptoms become worse or you do not improve as expected and you are unable to reach your usual health care provider, you should return to the Emergency Department, we are available 24 hours a day. For those patients who have received Radiology results, the interpretation of your X-ray as given to you by our Urgent Care physician is only a preliminary report. The Radiologist will review your films and if there is a change in the diagnosis you will be notified by phone. Please make sure you have provided a working phone number so we can reach you if necessary. In the event that you had a lab culture while you were a patient in the Urgent Care, you will be notified by phone if there is a need to change your antibiotic. Please make sure you have provided a working phone number so we can reach you if necessary. [facility] has provided you with a complete list of medications post discharge. Please inform your primary therapist/provider of your visit and for further instruction on these medications. Any specific questions regarding your chronic medications and dosages should be discussed with your primary care physician(s) and/or pharmacist. New Medications [facility], [address], [place] [id number], [phone] azithromycin (Azithromycin 5 Day Dose Pack 250 mg oral tablet) 1 packet(s) Oral (given by mouth) once. as directed on package labeling. Refills: 0. guaiFENesin (Mucinex 600 mg oral tablet, extended release) 1 tab(s) Oral (given by mouth) Every 12 hours scheduled time as needed congestion for 10 Days. Refills: 0. Additional medications on your home medication list not specifically addressed. Please contact the ordering physician if you have questions about these medications. baclofen (baclofen 10 mg oral tablet) multivitamin, (Multivitamin) oxyBUTYnin (oxybutynin 10 mg/24 hr oral tablet, extended release) pregabalin (pregabalin 150 mg oral capsule) traZODone (traZODone 100 mg oral tablet) venlafaxine (venlafaxine 150 mg oral capsule, extended release) Visit Information Allergies: Substance Reaction Symptoms Type Comments penicillin Drug Vital Signs: Vitals and Measurements this Visit (last charted value for your 02/11/2024 visit) Vital Signs This Visit Temperature Oral: 37 DegC Peripheral Pulse Rate: 93 bpm Respiratory Rate: 18 br/min Systolic Blood Pressure: 151 mmHg Diastolic Blood Pressure: 80 mmHg SpO2: 99 % Oxygen Therapy: Room air Blood Pressure Method: Automatic Measurements This Visit Height/Length Measured: 165.10 cm Weight Measured: 49.90 kg Weight Dosin.900 kg Body Mass Index: 18.31 kg/m2 BSA Measured: 1.51 m2 Problems List: Problem Onset Comments Tobacco user Patient Education Otitis Media With Effusion, Adult (Inser (more content not included)... Normal [facility] COVID + FLU Quick Testingon 02-14-2023 SARS-CoV-2 (COVID-19) RNA LI+probe Ql (Unsp spec) Negative [facility] Other COVID + FLU Quick Testing Negative [facility] Other LIPID PROFILEon 02-15-2022 CHOL-HDL RATIO NORM SEE BELOW Normal [facility] Comment on above: Result Comment: 3.3 - 4.4 LOW RISK 4.4 - 7.1 AVERAGE RISK 7.1 - 11.0 MODERATE RISK >11.0 HIGH RISK Performed By: #### L IPID, CMP #### [facility] [address] [address] [address] Frank Chen Cholesterol [Mass/Vol] 151 mg/dL Normal <=200 [facility] Comment on above: Performed By: #### L IPID, CMP #### [facility] [address] [address] [address] Frank Chen Cholesterol in HDL [Mass/Vol] 55 mg/dL Normal 40-60 [facility] Comment on above: Performed By: #### L IPID, CMP #### [facility] [address] [address] [address] Frank Chen Cholesterol in LDL [Mass/Vol] 71.0 mg/dL Normal [facility] Comment on above: Performed By: #### L IPID, CMP #### [facility] [address] [address] [address] Frank Chen Cholesterol.total/ Cholesterol in HDL [Mass ratio] 2.7 {ratio} Normal [facility] Comment on above: Performed By: #### L IPID, CMP #### [facility] [address] [address] [address] Frank Chen HDL NORMAL > or = 60 mg/dl - LO W CARDIOVASCULAR RISK <40 mg/dl - HIGH CARDIOVASCULAR RISK Normal [facility] Comment on above: Performed By: #### L IPID, CMP #### [facility] [address] [address] [address] Frank Chen LDL CALC NORMAL SEE BELOW Normal [facility] Comment on above: Result Comment: <100 mg/dl OPTIMAL 100 - 129 mg/dl NEAR OR ABOVE OPTIMAL 130 - 159 mg/dl BORDERLINE HIGH 160 - 189 mg/dl HIGH >190 mg/dl VERY HIGH Performed By: #### L IPID, CMP #### [facility] [address] [place] [address] Dr. Frank Chen Triglyceride [Mass/Vol] 125 mg/dL Normal <=150 [facility] Comment on above: Performed By: #### L IPID, CMP #### [facility] [address] [address] [address] Frank Chen VLDL CALC 25.0 mg/dL Normal [facility] Comment on above: Performed By: #### L IPID, CMP #### [facility] [address] [address] [address] Frank Chen PROF 14(COMP METB)on 022 Albumin [Mass/Vol] 3.7 g/dL Normal 3.4-5.0 [facility] Comment on above: Performed By: #### L IPID, CMP #### [facility] [address] [address] [address] Frank Chen Albumin/Globulin [Mass ratio] 1.2 {ratio} Normal [facility] Comment on above: Performed By: #### L IPID, CMP #### [facility] [address] [address] [address] Frank Chen ALP [Catalytic activity/Vol] 49 U/L Normal 46-116 [facility] Comment on above: Performed By: #### L IPID, CMP #### [facility] [address] [address] [address] Frank Chen ALT [Catalytic activity/Vol] 20 U/L Normal 14-59 [facility] Comment on above: Performed By: #### L IPID, CMP #### [facility] [address] [address] [address] Frank Chen Anion gap [Moles/Vol] 10.0 mmol/L Normal [facility] Comment on above: Performed By: #### L IPID, CMP #### [facility] [address] [place] [address] Dr. Frank Chen AST [Catalytic activity/Vol] 18 U/L Normal 15-37 [facility] Comment on above: Performed By: #### L IPID, CMP #### [facility] [address] [address] [address] Frank Chen Bilirubin [Mass/Vol] 0.5 mg/dL Normal 0.2-1.0 [facility] Comment on above: Performed By: #### L IPID, CMP #### [facility] [address] [place] [address] Dr. Frank Chen Calcium [Mass/Vol] 9.2 mg/dL Normal 8.5-10.1 [facility] Comment on above: Performed By: #### L IPID, CMP #### [facility] [address] [address] [address] Frank Chen Chloride [Moles/Vol] 104 mmol/L Normal 98-107 [facility] Comment on above: Performed By: #### L IPID, CMP #### [facility] [address] [address] [address] Frank Chen CO2 [Moles/Vol] 29.9 mmol/L Normal 21.0-32.0 [facility] Comment on above: Performed By: #### L IPID, CMP #### [facility] [address] [address] [address] Frank Chen Creatinine [Mass/Vol] 0.73 mg/dL Normal 0.55-1.02 [facility] Comment on above: Performed By: #### L IPID, CMP #### [facility] [address] [address] [address] Frank Chen EGFR-AF GUINEAN >60 Normal >=60 [facility] Comment on above: Performed By: #### L IPID, CMP #### [facility] [address] [address] [address] Frank Chen EGFR-NON AF GUINEAN >60 Normal >=60 [facility] Comment on above: Performed By: #### L IPID, CMP #### [facility] [address] [address] [address] Frank Chen Globulin (S) [Mass/Vol] 3.1 g/dL Normal [facility] Comment on above: Performed By: #### L IPID, CMP #### [facility] [address] [address] [address] Frank Chen Glucose [Mass/Vol] 98 mg/dL Normal 74-106 [facility] Comment on above: Performed By: #### L IPID, CMP #### [facility] [address] [address] [address] Frank Chen Potassium [Moles/Vol] 3.9 mmol/L Normal 3.5-5.1 [facility] Comment on above: Performed By: #### L IPID, CMP #### [facility] [address] [address] [address] Frank Chen Protein [Mass/Vol] 6.8 g/dL Normal 6.4-8.2 [facility] Comment on above: Performed By: #### L IPID, CMP #### [facility] [address] [address] [address] Frank Chen Sodium [Moles/Vol] 140 mmol/L Normal 136-145 [facility] Comment on above: Performed By: #### L IPID, CMP #### [facility] [address] [address] [address] Frank Chne Urea nitrogen [Mass/Vol] 14.0 mg/dL Normal 7.0-18.0 [facility] Comment on above: Performed By: #### L IPID, CMP #### [facility] [address] [address] [address] Frank Chen Urea nitrogen/Creatinin e [Mass ratio] 19.2 mg/mg Normal [facility] Comment on above: Performed By: #### L IPID, CMP #### [facility] [address] [place] [address] Dr. Frank Chen PAP ACOG PANEL 2: 30 to 65on 01-31-2022 . . Normal [facility] Comment on above: Result Comment: Perf ormed at: WB Performed By: #### [id number] #### [facility] [address] [place] [address] Dr. Frank Chen Age Gdln ACOG Testing -64 Normal [facility] Comment on above: Performed By: #### [id number] #### [facility] [address] [place] [address] Dr. Frank Chen DIAGNOSIS: Comment Normal [facility] Comment on above: Result Comment: NEGA TIVE FOR INTRAEPITHELIAL LESION OR MALIGNANCY. Performed at: WB Performed By: #### [id number] #### [facility] [address] [place] [address] Dr. Frank Chen HPV Aptima Negative Normal Negative [facility] Comment on above: Result Comment: This nucleic acid amplification test detects fourteen high-risk HPV types (16,18,31,33,35,39,45,51,52,56,58,59,66,68) without differentiation. Performed at: =G Performed By: #### [id number] #### [facility] [address] [place] [address] Dr. Frank Chen HPV Genotype Reflex Comment Normal [facility] Comment on above: Result Comment: Crit eria not met, HPV Genotype not performed. Performed at: WB Performed By: #### [id number] #### [facility] [address] [place] [address] Dr. Frank Chen Methodology: Comment Normal [facility] Comment on above: Result Comment: This liquid based ThinPrep(R) pap test was screened with the use of an image guided system. Performed at: WB Performed By: #### [id number] #### [facility] [address] [place] [address] Dr. Frank Chen Note: Comment Normal [facility] Comment on above: Result Comment: The Pap smear is a screening test designed to aid in the detection of premalignant and malignant conditions of the uterine cervix. It is not a diagnostic procedure and should not be used as the sole means of detecting cervical cancer. Both false-positive and false-negative reports do occur. . Performed at: WB Performed By: #### [id number] #### [facility] [address] [place] [address] Dr. Frank Chen Performed by: Comment Normal [facility] Comment on above: Result Comment: Erin Ramirez, Upkeep Mechanic (ASCP) Performed at: WB Performed By: #### [id number] #### [facility] [address] [place] [address] Dr. Frank Chen Specimen adequacy: Comment Normal [facility] Comment on above: Result Comment: Sati sfactory for evaluation. Endocervical and/or squamous metaplastic cells (endocervical component) are present. Performed at: WB Performed By: #### [id number] #### [facility] [address] [place] [address] LUNG CANCER SCREENINGon 0 11-23-2021 CT LUNG CANCER SCREENING EXAMINATION: CT LUNG CANCER SCREENING HISTORY: Tobacco dependence caused by cigarettes COMPARISON: No relevant comparison available. TECHNIQUE: Axial, Coronal, and Sagittal images were created without the administration of IV contrast material. Dose reduction techniques were achieved by using automated exposure control and/or adjustment of mA and/or kV according to patient size and/or use of iterative reconstruction technique. FINDINGS: LUNGS: Mild centrilobular emphysema. Scattered linear opacities, atelectasis and/or scar is favored. A few scattered punctate nodules are identified the largest measuring 5 mm in the right upper lobe axial image 71. PLEURA: No mass, effusion, or pneumothorax. VASCULATURE: No abnormality. BRENNA: Calcified left hilar lymph nodes MEDIASTINUM: Small calcified pretracheal lymph nodes. No pathologic lymphadenopathy CARDIAC: No enlargement, pericardial thickening, or significant calcification. AORTA: No aneurysm or dissection. CHEST WALL: No mass or axillary adenopathy BONES: No bone lesion or fracture. LIMITED ABDOMEN: No suspicious findings. Limited images of the upper abdomen. OTHER: Negative. IMPRESSION: LUNG SCREENING: Lung-RADS Category 2- Benign Appearance or Behavior. Nodules with a very low likelihood of becoming a clinically active cancer due to size or lack of growth. 2. Continue annual screening with LDCT in 12 months. Electronically authenticated by: NEHA HSIEH Date: 2021-11-23 07:23 Normal [facility] Vital Signs Date Time Vital Sign Value Performing Clinician Facility 02-14-2023 15:55-0500 Body height 165.1 cm Fabiola Tejeda Other [facility] Other 02-14-2023 15:55-0500 Body mass index (BMI) [Ratio] 19.37 kg/m2 Fabiola Tejeda Other [facility] Other 02-14-2023 15:55-0500 Body temperature 97.5 [degF] Fabiola Tejeda Other [facility] Other 02-14-2023 15:55-0500 Body weight 52.8 kg Fabiola Tejeda Other [facility] Other 02-14-2023 15:55-0500 Diastolic blood pressure 63 mm[Hg] Fabiola Tejeda Other [facility] Other 02-14-2023 15:55-0500 Respiratory rate 18 /min Fabiola Tejeda Other [facility] Other 02-14-2023 15:55-0500 SaO2% (BldA) [Mass fraction] 99 % Fabiola Tejeda Other [facility] Other 02-14-2023 15:55-0500 Systolic blood pressure 109 mm[Hg] Fabiola Tejeda Other [facility] Other Encounters Encounter Date Encounter Type Care Provider Facility Start: 02-14-2024 End: 02-14-2024 Emergency department patient visit CHRIS CHANCE [facility] Start: 02-11-2024 End: 02-11-2024 ambulatory CHRIS CHANCE Facility:[facility] Start: 03-03-2023 End: 03-06-2023 ambulatory CHRIS CHANCE [facility] Start: 02-14-2023 End: 02-14-2023 ambulatory Fabiola Tejeda Other [facility] Other Start: 02-14-2023 Office outpatient ne w 30 minutes Fabiola Tejeda [facility] Start: 02-15-2022 End: 02-16-[address] CHRIS CHANCE Facility:[facility] Start: 01-24-2022 End: 01-24-[address] CHRIS CHANCE Facility:[facility] Start: 11-20-2021 End: 11-21-[address] CHRIS CHANCE Facility:[facility] Payers Date Payer Category Payer Unknown [id number] 2.16.84 [id number] 1965 Unknown [id number] .[id number] [id number] 1965 Unknown [id number] .16.84 [id number] 1964 Unknown [id number] 2.16.8 [id number] 1964 Unknown [id number] 2.16.8 [id number] 1964 Unknown [id number] 2.16.8 [id number] 1960 Medicare [id number] Social History Date Type Detail Facility Unknown if ever smoked [facility] Other Sex Assigned At Sex Assigned At Bir th [facility] Other Clinical Note 02-11-2024 Note Date & Type Note Facility 02-11-2024 Note Patient Education Ma terials Follows: Otitis Media With Effusion, Adult Otitis media with effusion (OME) is inflammation and fluid (effusion) in the middle ear without having an ear infection. The middle ear is the space behind the eardrum. The middle ear is connected to the back of the throat by a narrow tube (eustachian tube). Normally the eustachian tube drains fluid out of the middle ear. A swollen eustachian tube can become blocked and cause fluid to collect in the middle ear. OME often goes away without treatment. Sometimes OME can lead to hearing problems and recurrent acute ear infections (acute otitis media). These conditions may require treatment. What are the causes? OME is caused by a blocked eustachian tube. This can result from: ? Allergies. ? Upper respiratory infections. ? Enlarged adenoids. The adenoids are areas of soft tissue located high in the back of the throat, behind the nose and the roof of the mouth. They are part of the body's natural defense system (immune system). ? Rapid changes in pressure, like when an airplane is descending or during scuba diving. In some cases, the cause of this condition is not known. What are the signs or symptoms? Common symptoms of this condition include: ? A feeling of fullness in your ear. ? Decreased hearing in the affected ear. ? Fluid draining into the ear canal. ? Pain in the ear. In some cases, there are no symptoms. How is this diagnosed? A health care provider can diagnose OME based on signs and symptoms of the condition. Your provider will also do a physical exam to check for fluid behind the eardrum. During the exam, your health care provider will use an instrument called an otoscope to look in your ear. Your health care provider may do other tests, such as: ? A hearing test. ? A tympanogram. This is a test that shows how well the eardrum moves in response to air pressure in the ear canal. It provides a graph for your health care provider to review. ? A pneumatic otoscopy. This is a test to check how your eardrum moves in response to changes in pressure. It is done by squeezing a small amount of air into the ear. How is this treated? Treatment for OME depends on the cause of the condition and the severity of symptoms. The first step is often waiting to see if the fluid drains on its own in a few weeks. Home care treatment may include: ? Achh-ipb-wgfbvek pain relievers. ? A warm, moist cloth placed over the ear. Severe cases may require a procedure to insert tubes in the ears (tympanostomy tubes) to drain the fluid. Follow these instructions at home: ? Take uucz-dfe-zhdwvmy and prescription medicines only as told by your health care provider. ? Keep all follow-up visits. Contact a health care provider if: ? You have pain that gets worse. ? Hearing in your affected ear gets worse. ? You have fluid draining from your ear canal. ? You have dizziness. ? You develop a fever. Get help right away if: ? You develop a severe headache. ? You completely lose hearing in the affected ear. ? You have bleeding from your ear canal. ? You have sudden and severe pain in your ear. These symptoms may represent a serious problem that is an emergency. Do not wait to see if the symptoms will go away. Get medical help right away. Call your local emergency services (911 in the [place] Do not drive yourself to the hospital. Summary ? Otitis media with effusion (OME) is inflammation and fluid (effusion) in the middle ear without having an ear infection. ? A swollen eustachian tube can become blocked and cause fluid to collect in the middle ear. ? Treatment for OME depends on the cause of the condition and the severity of symptoms. ? Many times, treatment is not needed because the fluid drains on its own in a few weeks. ? Sometimes OME can lead to hearing problems and recurrent acute ear infections (acute otitis media), which may require treatment. This information is not intended to replace advice given to you by your health care provider. Make sure you discuss any questions you have with your health care provider. Document Revised: 07/01/2021 Document Reviewed: 07/01/2021 [employer] Patient Education ? 2023 [employer]. Infectious Disease Sinus Infection, Adult A sinus infection, also called sinusitis, is inflammation of your sinuses. Sinuses are hollow spaces in the bones around your face. Your sinuses are located: ? Around your eyes. ? In the middle of your forehead. ? Behind your nose. ? In your cheekbones. Mucus normally drains out of your sinuses. When your nasal tissues become inflamed or swollen, mucus can become trapped or blocked. This allows bacteria, viruses, and fungi to grow, which leads to infection. Most infections of the sinuses are caused by a virus. A sinus infection can develop quickly. It can last for up to 4 weeks (acute) (more content not included)... [facility] Evaluation note 02-14-2023 Note Date & Type Note Facility 02-14-2023 Evaluation note Encounter Date Diagnosis Assessment Notes Jan, Viral URI with cough (ICD-10 - J06.9) Advised patient that rapid COVID/Influenza A/B test was negative today. Advised patient that will treat as viral URI. Supportive care as directed, increase fluids and rest, Tylenol as directed, rx of Capmist and prednisone, cool mist humidifier, throat lozenges. Discussed infection control practices such as good hand washing and mask wearing. Patient to follow up with PCP if symptoms persist or worsen despite treatment. Immediate eval for SOB, difficulty breathing, chest pain, fevers that do not break with antipyretic or any other concerning symptoms as reviewed on patient education handout. Patient verbalizes understanding and is agreeable to treatment plan. Patient left in stable condition. Jan, Acute conjunctivitis of both eyes, unspecified acute conjunctivitis type (ICD-10 - H10.33) Advised patient that physical exam is consistent with viral conjunctivitis, however, patient requested antibiotic drop today in office. Advised to use as directed. Follow above treatment plan recommendations Jan, Contact with and (suspected) exposure to covid-19 (ICD-10 - Z20.822) [facility] Other History general Narrative - Reported Note Date & Type Note Facility History general Narrative - Reported Type Medical History ms [facility] Other Summary Purpose Family History No Family History Records FoundNo Family History Records FoundNo Family History Records FoundNo Family History Records Found Advance Directives No Advanced Directives Records FoundNo Advanced Directives Records FoundNo Advanced Directives Records FoundNo Advanced Directives Records Found Additional Source Comments INFORMATION SOURCE (unrecogn ized section and content) DATE CREATED AUTHOR 02/19/2022 [facility] DATE CREATED AUTHOR AUTHOR'S ORGANIZ ATION 03/06/2023 [facility] DATE CREATED AUTHOR AUTHOR'S ORGANIZ ATION 02/17/2024 [facility] DATE CREATED AUTHOR AUTHOR'S ORGANIZ ATION 02/20/2024 [facility] REASON FOR VISIT (unrecogniz ed section and content) SORE THROAT, HEADACHE, EYES W/MUCUS, CONGESTED, COUGH FOR RECORDS PERTAINING TO PATIENTS WHO ARE OR HAVE BEEN ENROLLED IN A CHEMICAL DEPENDENCY/SUBSTANCEABUSE PROGRAM, SOME INFORMATION MAY BE OMITTED. This clinical summary was aggregated from multiple sources. Caution should be exercised in using it in the provision of clinical care. This summary normalizes information from multiple sources, and as a consequence, information in this document may materially change the coding, format and clinical context of patient data. In addition, data may be omitted in some cases. CLINICAL DECISIONS SHOULD BE BASED ON THE PRIMARY CLINICAL RECORDS. [employer] [facility]. provides no warranty or guarantee of the accuracy or completeness of information in this document.
[2024-09-06 11:09] LABS: Age Gdln ACOG Testing Note (.); HPV Aptima Negative (Negative); IGP, Aptima HPV, rfx 16/18,45 Note (.)
== END 2024-09-03 18:57 | disposition home or self-care (01) ==
LOC: LAB 18:56
PROVIDERS: PCP Internal Medicine; Visit Provider Obstetrics & Gynecology
DX: Z01.419 Encounter for gynecological examination (general) (routine) without abnormal findings (principal)
CPT/HCPCS: 87624; 88175

== ENCOUNTER 2024-09-26 10:08 | Outpatient (OUT) | payer MEDICARE, SELFPAY ==
--- OUTSIDE RECORDS SUMMARY | 2024-09-26 10:10 | XMS_ITS | Clinical Summary ---
[facility] Address [id number] [address] [place] [address] Care Team Providers Care Channel Worker Name Role Phone Erasmo Narvaez MD Primary Care Provider [phone] Allergies Active Allergy Reactions Criticality Noted Date [...] Medical Devices Not on file Insurance [employer]IC[employer] Care Teams Channel Worker Relationship Specialty Start Date End Date Erasmo Narvaez MD [address] [place] [address], [facility] [place] [address] PCP - General Internal Medicine 02/14/24
--- OUTSIDE RECORDS SUMMARY | 2024-09-26 10:10 | XMS_ITS | Encounter Summary ---
Author Organization [facility] Address [address] [facility] [place] [address] Care Team Providers Care Box Coverer Hand Name Role Phone Unavailable Primary Care Provider Unavailabl e Encounter Details Date Type Department Care Team (Late st Contact Info) Description 09/12/2024 Orders Only [facility] [address] [facility] [place] [address] Sarah Albert LPN [address] [facility] [place] [place] [address] Social History Tobacco Use Types Packs/Day Years [...] 09/09/2025 3:00 PM EDT Office Visit [facility] OB [address] [place] [address] Kleber Wood DO [address] [facility] [place] [address] documented as of this encounter Procedures Procedure Name Priority Date/Time Associated Diagnosis Comments PAP SMEAR Routine 09/03/2024 12:00 AM EDT documented in this encounter Results * Pap Smear (09/03/2024 12:00 AM EDT) Swab Cervical swab / Unknown us Nina Nurse [facility] CYTOLOGY ORDERABLES Final Result EXTERNAL LAB documented in this encounter Visit Diagnoses Not on filedocumented in this encounter
--- OUTSIDE RECORDS SUMMARY | 2024-09-26 10:10 | XMS_ITS | Clinical Summary ---
Author Organization Rolando [facility]ad[facility]ar[facility] Address [address] [employer] [place] [address] Care Team Providers Care Floor Molder Name Role Phone Erasmo Narvaez MD Primary Care Provider Allergies Active Allergy Reactions Criticality Noted Date Comments Penicillins Rash Low 06/12/2014 Propoxyphene Rash Low 12/16/2004 Darvocet. Possible sun sensitivity. Medications traZODone (DESYREL) 100 MG tablet Take 1 tablet by mouth nightly 90 tablet 3 12/13/2023 Active oxyBUTYnin (DITROPAN-XL) 10 MG extended release tablet Take 1 tablet by mouth daily 90 tablet 3 12/13/2023 Active venlafaxine (EFFEXOR XR) 150 MG extended release capsule Take 1 capsule by mouth daily 90 capsule 3 12/13/2023 Active baclofen (LIORESAL) 10 MG tabletIndicatio ns:MS (multiple sclerosis) (HCC) Take 1 tablet by mouth in the morning, at noon, in the evening, and at bedtime 360 tablet 3 04/12/2024 Active pregabalin (LYRICA) 150 MG capsuleIndicati ons:MS (multiple sclerosis) (HCC) Take 1 capsule by mouth in the morning, at noon, and at bedtime for 90 days. Max Daily Amount: 450 mg 270 capsule 08/26/2024 11/25/19 25 Active modafinil (PROVIGIL) 100 MG tabletIndicatio ns:MS (multiple sclerosis) (HCC),Chronic fatigue Take 1 tablet by mouth daily for 30 days. Max Daily Amount: 100 mg 30 tablet 08/13/2024 09/13/19 25 Active Problems Problem Noted Date Diagnosed Date Chronic fatigue / Multiple Sclerosis Related Tobacco dependency 06/14/2016 MS (multiple sclerosis) (HCC) / 2003 Resolved Problems Problem Noted Date Diagnosed Date Resolved Date Meralgia paresthetica of left side 09/11/2020 09/10/2021 Colon cancer screening 10/07/201612/13 Screening for condition 06/14/201611/19 Overview (10/15/2016): Updating deleted diagnoses Trochanteric bursitis, right hip 06/09/2015 12/20/2016 Encounters Date Type Department Care Team Description 08/26/2024 Refill Erasmo Narvaez MD [address] [place] [address] [place] [address] Sid Rueda MD Medication Refill 08/13/2024 8:20 AM EDT Office Visit Erasmo Narvaez MD [address] [place] [address] [place] [address] Erasmo Narvaez MD Tobacco dependency (Primary Dx); MS (multiple sclerosis) (HCC); Chronic fatigue / Multiple Sclerosis Related; Personal history of tobacco use; Visit for screening mammogram 08/13/2024 Abstract Erasmo Narvaez MD [address] [place] [address] [place] [address] Erasmo Narvaez MD from Last 3 Months Immunizations Immunization Administration Dates Next Due COVID-19, MODERNA ANDRESSA reyes r, Primary or Immunocompromised, (age 12y+), IM, 100 mcg/0.5mL 04/23/2020,03/26/2020 COVID-19, PFIZER PURPLE top, DILUTE for use, (age 12 y+), 30mcg/0.3mL 05/23/2020,05/06/2020 Influenza A (Q3N2-33) Vaccine PF IM 02/06/2009,1 03/30/2008 Influenza Virus Vaccine 12/22/2021,01/07,12/18/2018,2017 Influenza, AFLURIA (age 3 y+ ), FLUZONE, (age 6 mo+), Quadv MDV, 0.5mL 01/08/2020 Influenza, FLUARIX, FLULAVAL , FLUZONE (age 6 mo+) and AFLURIA, (age 3 y+), Quadv PF, 0.5mL 12/22/2021 Influenza, FLUBLOK, (age 18 y+), Quadv PF, 0.5mL 01/18/2021 Influenza, Quadv, 6 mo and o lder, IM (Fluzone, Flulaval) 01/02/2018 Pneumococcal, PPSV23, PNEUMO VAX 23, (age 2y+), SC/IM, 0.5mL 07/24/2018 Family History Medical History Relation Name Comments Allergies Brother Asthma Brother Allergies Father High Blood Pressure Father Allergies Mother Anxiety Disorder Mother Asthma Mother High Blood Pressure Mother High Cholesterol Mother Allergies Sister Asthma Sister Relation Name Status Comments Brother Father Mother Sister Social History Tobacco Use Types Packs/Day Years Used Date Smoking Tobacco: Every Day Cigarettes 0.5 40 Smokeless Tobacco: Never Tobacco Cessation:Ready to Q uit: No; Counseling Given: Yes Alcohol Use Standard Drinks/Week Comments No 0 (1 standard drink = 0.6 oz pur e alcohol) [facility] [employer] Answer Date Recorded In the past 12 months has e [employer], gas, oil, or water [employer] threatened to shut off services in your [...] 02/02/2024 How often do you attend chur ch or faith services? More than 4 times per year 02/02/2024 Do you belong to any clubs o r organizations such as moravian groups, unions, fraternal or athletic groups, or [...] Date Recorded PHQ-9 Total Score 0 08/13/2024 [facility] Occupational Stress Questionnaire Answer Date Recorded [...] place to sleep or slept in a fpc (including now)? No 07/26/2023 Housing Stability Vital Sign Answer Madi e Recorded In the last 12 months, was t here a time when you were not able to pay the mortgage or rent on time? No 02/02/2024 In the past 12 months, how m any times have you moved where you were living? 1 02/02/2024 At any time in the past 12 m [facility], were you homeless or living in a fpc (including now)? No 02/02/2024 Interpersonal Safety ([facility] HRSN) Answer Date Recorded How often [...] Sign Reading Time Taken Comments Blood Pressure 110/65 08/13/2024 8:20 AM EDT Pulse 72 08/13/2024 8:20 AM EDT Temperature 36.2 C (97.2 F) 11/16/2016 1:18 PM EDT Respiratory Rate 16 11/16/2016 1:45 PM EDT Oxygen Saturation 100% 11/16/2016 1:45 PM EDT Inhaled Oxygen Concentration - - Weight 50.8 kg (112 lb) 08/13/2024 8:20 AM EDT Height 165.1 cm (5' 5 ) 08/13/2024 8:20 AM EDT Body Mass Index 18.64 08/13/2024 8:20 AM EDT Plan of Treatment Upcoming Encounters Date Type Department Care Team (Late st Contact Info) Description 02/07/2025 8:00 AM EST Office Visit Erasmo Narvaez MD [address] [place] [address] [place] [address] Erasmo Narvaez MD [address] [place] [address], [place] [address] maw Health Maintenance Due Date Last Done Comments Pap smear 1985 Cervical cancer screen 1994 HPV (without or with Pap) 1994 FIT/FOBT: Average risk 2009 Fecal-DNA (Cologuard): Average risk 2009 Sigmoidoscopy/CT colonography 2009 Shingles vaccine (1 of 2) 2014 Pneumococcal 50+ years Vaccine (2 of 2 - PCV) 07/25/2019 07/24/2018 Lung Cancer Screening &/or Counseling 11/20/2022 11/20/2021 Breast cancer screen 01/25/2024 01/24/2022, 01/14/2021, 09/06/2018, Additional history exists Annual Wellness Visit (Medicare Advantage) 03/20/2024 02/02/2024, 01/26/2023, 01/26/2023, Additional history exists Flu vaccine (#1) 10/18/2024 12/22/2021, 07/2021, 01/18/2021, Additional history exists COVID-19 Vaccine ( season) 2025 05/23/2020, 05/06/2020, 04/23/2020, Additional history exists Postponed from 11/19/2023 (Patient Refused) DTaP/Tdap/Td vaccine (1 - Tdap) 02/01/2025 Postponed from 06/09/1983 (Patient Refused) Depression Screen 08/13/2025 08/13/2024, 08/13/2024 Colonoscopy 11/16/2026 11/16/2016, 10/20, 06/09/2015 (Postponed) Colorectal Cancer Screen 11/16/2026 Lipids 03/14/2028 03/14/2023, 12/18, 12/16/2016, Additional history exists Respiratory Syncytial Virus (RSV) or age 60 yrs+ (1 - 1-dose 75+ series) 06/09/2039 HIV screen Completed 12/16/2016 Hepatitis C screen Completed 12/16/2016 Pneumococcal 0-49 years Vaccine Discontinued 07/24/2018 Hepatitis A vaccine Aged Out No longe r eligible based on patient's age to complete this topic Hepatitis B vaccine Aged Out No longe r eligible based on patient's age to complete this topic Hib vaccine Aged Out No longer eligi ble based on patient's age to complete this topic Meningococcal (ACWY) vaccine Aged Out No longer eligible based on patient's age to complete this topic Meningococcal B vaccine Aged Out No l onger eligible based on patient's age to complete this topic Polio vaccine Aged Out No longer elig ible based on patient's age to complete this topic Procedures Procedure Name Priority Date/Time Associated Diagnosis Comments LIPID PANEL Routine 03/14/2023 8:18 AM EST Screening cholesterol level MEDICARE AWV Routine 01/26/2023 CT LUNG SCREENING (INITIAL/ANNUAL) Routine 11/20/2021 Personal history of tobacco use MAMMOGRAPHY Routine 01/14/2021 HIV SCREEN Routine 12/16/2016 10:30 AM EDT HEPATITIS C ANTIBODY Routine 12/16/2016 10:30 AM EDT COLONOSCOPY Routine 11/16/2016 from Last 3 Months or Most Recently Relevant to Health Maintenance Results * Lipid Panel (03/14/2023 8:18 AM EST) Cholesterol 169 <200 mg/dL 03/14/2023 8:18 AM EST [email or web address] Comment: Cholesterol Guidelines: <200 Desirable 200-240 Borderline >240 Undesirable HDL 51 >40 mg/dL 03/14/2023 8:18 AM EST [email or web address] Comment: HDL Guidelines: <40 Undesirable 40-59 Borderline >59 Desirable LDL Cholesterol 93 0 - 130 mg/dL 03/14/2023 8:18 AM EST [email or web address] Comment: LDL Guidelines: <100 Desirable 100-129 Near to/above Desirable 130-159 Borderline >159 Undesirable Direct (measured) LDL and calculated LDL are not interchangeable tests. Chol/HDL Ratio 3.3 <5 03/14/2023 8:18 AM EST [email or web address] Comment: Triglycerides 124 <150 mg/dL 03/14/2023 8:18 AM EST [email or web address] Comment: Triglyceride Guidelines: <150 Desirable 150-199 Borderline 200-499 High >499 Very high Based on AHA Guidelines for fasting triglyceride, December 2011. Blood BLOOD SPECIMEN / Unknown 03/14/2023 8:18 AM EST 03/14/2023 8:19 AM EST us Terrie Evans APPLIANCE REPAIR TECHNICIAN - POWDER MONKEY CHEMISTRY ORDERABL ES Final Result [facility] [address] [place] [address], [facility] [phone] [facility] [address] [place] [address], [facility] [phone] * MEDICARE AWV (01/26/2023) us Historical Provider HEALTH MAINTENANCE Final Result * CT LUNG SCREENING (11/20/2021) Anatomical Region Laterality Modality Lung, Chest Computed Tomogra phy us Erasmo Narvaez MD IMG CT ORDERABLES Final Res ult * MAMMOGRAPHY (01/14/2021) Anatomical Region Laterality Modality Other [facility] Provider HEALTH MAINTENANCE Final Result * Hepatitis C Antibody (12/16/2016 10:30 AM EDT) Hepatitis C Ab NONREACTIVE NR 9:16 PM EDT [email or web address] Comment: The hepatitis C procedure used in our laboratory is a Chemiluminescent test specific for three recombinant HCV antigens. A negative anti-HCV result indicates that the antibodies to hepatitis C virus are not present at this time. Individuals with reactive anti-HCV should be considered infected and infectious until proven otherwise. Confirmation of all equivocal or reactive results is recommended by ordering HCV RNA by PCR. Performed at [address] [address] ([phone] 12/16/2016 10:3 0 AM EDT 12/16/2016 10:31 AM EDT Erasmo Narvaez MD IMMUNOLOGY ORDERABLES Final Result [facility] [address] [place] [address], [facility] [phone] [place] [id number], [facility] [phone] * HIV Screen (12/16/2016 10:30 AM EDT) HIV Ag/Ab NONREACTIVE NR 12/16/2016 9:05 PM EDT [facility] Comment: No laboratory evidence of HIV infection. If acute HIV infection is suspected, consider testing for HIV-1 RNA. This is an FDA approved immunoassay that detects HIV-1 and HIV-2 antibodies and HIV-1 p24 antigen to screen for infection with HIV-1 or HIV-2. Performed at [address] [address] ([phone] 12/16/2016 10:3 0 AM EDT 12/16/2016 10:31 AM EDT Erasmo Narvaez MD IMMUNOLOGY ORDERABLES Final Result [facility] [address] [place] [address], [facility] [phone] [facility] [address] [place] [address], [facility] [phone] * HM COLONOSCOPY (11/16/2016) us Historical Provider HEALTH MAINTENANCE Final Result from Last 3 Months or Most Recently Relevant to Health Maintenance Insurance [employer] MEDIC[employer] ADVANTAGE [employer] AD[employer] Care Teams Floor Molder Relationship Specialty Start Date End Date Erasmo Narvaez MD [address] [place] [address], [place] [address] PCP - General Internal Medicine 04/18/14
--- OUTSIDE RECORDS SUMMARY | 2024-09-26 10:10 | XMS_ITS | Clinical Summary ---
Author Organization [facility] Address [address] [place] [address] Care Team Providers Care Trimmer Climber Name Role Phone Unavailable Primary Care Provider [...] Encounters Date Type Department Care Team Description 09/12/2024 Orders Only [facility] OB [address] [place] [address] [place] [address] Sarah Albert LPN 09/03/2024 1:00 PM EDT Office Visit [facility] OB [address] [place], [place] [address] [place] [address] Kleber Wood, DO Well woman exam with routine gynecological exam; Encounter for screening mammogram for malignant neoplasm of breast; Postmenopausal state; Osteoporosis, post-menopausal 09/03/2024 Clinisync Result Encounter [facility] External Department Unsolicited Kleber Wood DO 09/03/2024 Bamboo flowsheet [facility] [address] [facility] [place] [address] Klbeer Wood DO from Last 3 Months Family [...] EDT Office Visit [facility] OB [address] [facility] [place] [id number] Kleber Wood DO [address] [facility] [place] [address] Health Maintenance Due Date Last Done Comments CT Colonography 1964 FIT-DNA 1964 FIT 1965 FOBT 1965 Sigmoidoscopy 1965 Mammogram 01/24/2023 01/24/2022 Influenza Vaccine (#1) 2024 2, 01/18/2021, 01/08/2020, Additional history exists Colonoscopy 11/16/2026 11/16/2016 Colorectal Cancer Screening 11/16/2026 Cervical Cancer Screening 01/24/2027 HPV/Cotest 01/24/2027 Pap Smear 09/04/2027 09/03/2024, 01/24/2022 Procedures Procedure Name Priority Date/Time Associated Diagnosis Comments IGP,APTIMA HPV,AGE GDLN Routine 09/03/2024 1:06 PM EDT PAP SMEAR Routine 09/03/2024 12:00 AM EDT BI MAMMOGRAM DIAGNOSTIC BILATERAL Routine 01/24/2022 12:00 PM EST Other specified noninflammatory disorders of vagina Encounter for gynecological examination (general) (routine) without abnormal findings from Last 3 Months or Most Recently Relevant to Health Maintenance Results * IGP,APTIMA HPV,AGE GDLN (09/03/2024 1:06 PM EDT) AGE GDLN ACOG TESTING Note . [facility] Comment: TESTS RESULT FLAG UNITS REF RANGE LAB Clinician Provided Cytology Information Source.............Cervix;Endocervix No. of containers..01 ThinPrep Vial Amber ANDERSON Lisa... 30-65 01 FLAG LEGEND: L-Low Normal,H-High Normal,LL-Alert Low,HH-Alert High <-Panic Low,>-Panic High,A-Abnormal,AA-Critical Abnormal Performed at: 01 =G [address] [address] Chante Dominique MD, IGP, APTIMA HPV, RFX 16/18,45 Note . [facility] Comment: TESTS RESULT FLAG UNITS REF RANGE LAB DIAGNOSIS: 02 NEGATIVE FOR INTRAEPITHELIAL LESION OR MALIGNANCY. Specimen adequacy: 02 Satisfactory for evaluation. Endocervical and/or squamous metaplastic cells (endocervical component) are present. Performed by: 02 Camille Donahue, Orientor ([facility]) . 02 Note: Note 02 The Pap smear is a screening test designed to aid in the detection of premalignant and malignant conditions of the uterine cervix. It is not a diagnostic procedure and should not be used as the sole means of detecting cervical cancer. Both false-positive and false-negative reports do occur. Test Methodology: Note 02 This liquid based ThinPrep(R) pap test was screened with the use of an image guided system. HPV Genotype Reflex Note 02 Criteria not met, HPV Genotype not performed. FLAG LEGEND: L-Low Normal,H-High Normal,LL-Alert Low,HH-Alert High <-Panic Low,>-Panic High,A-Abnormal,AA-Critical Abnormal Performed at: [address] [phone] Chante Dominique MD, HPV APTIMA Negative Negative [facility] Comment: This nucleic acid amplification test detects fourteen high- risk HPV types (16,18,31,33,35,39,45,51,52,56,58,59,66,68) without differentiation. Performed at: = - [facility] [address] [id number] Director Clinical Information Services: Chante Dominique MD, Phone: [phone] Performed at: - [facility] [id number] Director Clinical Information Services: Chante Dominique MD, Phone: [phone] 09/03/2024 1:06 PM EDT 09/03/2024 8:03 PM EDT Narrative [facility] - 09/06/2024 11:09 AM EDT BRUSH-SPATULA CERVIX ENDOCERVIX Kleber Wood DO LAB BLOOD ORDERABLES Final Resul t Performing Organization Address City/[facility]/ZIP Co de Phone Number [facility] * Pap Smear (09/03/2024 12:00 AM EDT) Swab Cervical swab / Unknown Nina Nurse [facility] Ob LAB CYTOLOGY ORDERABLES Final Result Performing Organization Address City/[facility]/ZIP Co de Phone Number EXTERNAL LAB * Bilateral diagnostic mammogram (01/24/2022 12:00 PM EST) Anatomical Region Laterality Modality Breast Bilateral Mammography Narrative 01/24/2022 12:00 PM EST PERFORMED AT [facility] LOCATION:[id number] Procedure Note CONVERSION, GENERIC - 09/23/2022 PERFORMED AT [facility] LOCATION:[id number] Kleber Wood DO IMG BI PROCEDURES Final Result from Last 3 Months or Most Recently Relevant to Health Maintenance Insurance [employer]
--- NOTE | 2024-09-26 10:36 | MM_ITS ---
Patient Name: ROBERTA CORLEY MR#: [id number] : 1965 Exam Date: 09/26/2024 Ordering Doctor: DR LUPILLO DEVI . RADIOLOGY REPORT PROCEDURE: MM TOMOSYNTHESIS SCREENING BI COMPARISON: MG MAMM SCREEN 3D ERNST CAD, 01/14/2021. MG MAMM ERNST DIAG W CAD, 09/25/2019. MAMMO POST BIOPSY RIGHT, 03/26/2019. MG MAMM ERNST SCRN W CAD DIG, 01/16/2015. INDICATIONS: Screening Calculator Name NCI Breast Cancer Risk Assessment Tool 5 Year Breast Cancer Risk 1.50% Lifetime Breast Cancer Risk 7.70% Personal Breast Cancer No Personal Ovarian Cancer No Treatments None Family Cancers Grandmother-maternal with breast cancer at age ~82. LOCATION: [facility] BREAST COMPOSITION: The breasts are heterogeneously dense, which may obscure small masses. FINDINGS: RIGHT BREAST: No significant suspicious finding. LEFT BREAST: No significant suspicious finding. DIAGNOSTIC CATEGORY 1--NEGATIVE. RECOMMENDATIONS: ROUTINE MAMMOGRAM AND CLINICAL EVALUATION IN 12 MONTHS. PLEASE NOTE: A NORMAL MAMMOGRAM DOES NOT EXCLUDE THE POSSIBILITY OF BREAST CANCER. A CLINICALLY SUSPICIOUS PALPABLE LUMP SHOULD BE BIOPSIED. Dictated by: Tex Hudson DO on 09/26/2024 at 13:50 Approved by: Tex Hudson DO on 09/26/2024 at 13:52
== END 2024-09-26 10:09 | disposition home or self-care (01) ==
LOC: MAMMO 10:08
PROVIDERS: PCP Internal Medicine; Visit Provider Obstetrics & Gynecology
DX: Z12.31 Encounter for screening mammogram for malignant neoplasm of breast (principal); Z80.3 Family history of malignant neoplasm of breast
CPT/HCPCS: 77063; 77067